=== PATIENT | female | born 1965 | race Caucasian/White ===

== ENCOUNTER 2023-09-06 06:58 | Outpatient (OUT) | payer BC, SELFPAY ==
[2023-09-06 07:30] LABS: Basophils Absolute Auto 0.1 10^3/uL (0.0-0.1); Basophils Percent Auto 1.3 % (0.2-2.0); Eosinophils Absolute Auto 0.2 10^3/uL (0.0-0.7); Eosinophils Percent Auto 2.8 % (0.9-7.0); Hematocrit 40.4 % (36.0-48.0); Hemoglobin 13.4 g/dL (12.0-16.0); Immature Granulocytes Abs Auto 0.01 10^3/uL (0.00-0.03); Immature Granulocytes Pct Auto 0.2 % (0.0-0.5); Lymphocytes Absolute Auto 2.3 10^3/uL (1.2-3.8); Lymphocytes Percent Auto 41.3 % (20.5-60.0); Mean Corpuscular HGB Conc 33.2 g/dL (29.9-35.2); Mean Corpuscular Hemoglobin 34.2 pg (26.7-34.0); Mean Corpuscular Volume 103.1 fL (81.0-99.0); Monocytes Absolute Auto 0.5 10^3/uL (0.3-0.8); Monocytes Percent Auto 9.4 % (1.7-12.0); Neutrophils Absolute Auto 2.5 10^3/uL (1.4-6.5); Platelet Count 239 10^3/uL (150-450); Red Blood Count 3.92 10^6/uL (4.20-5.40); Red Cell Distribution Width 11.8 % (11.0-15.0); White Blood Count 5.5 10^3/uL (4.0-11.0)
[2023-09-06 07:49] LABS: Estimated Average Glucose 97 mg/dL
[2023-09-06 08:02] LABS: Alanine Aminotransferase 19 U/L (14-59); Albumin Globulin Ratio 1.3; Albumin Level 3.9 g/dL (3.4-5.0); Alkaline Phosphatase 90 U/L (46-116); Anion Gap 12.1; Aspartate Amino Transferase 14 U/L (15-37); BUN Creatinine Ratio 33.3; Bilirubin Total 0.2 mg/dL (0.2-1.0); Calcium 8.5 mg/dL (8.5-10.1); Chloride 104 mmol/L (98-107); Chol HDL Ratio 3.4; Cholesterol 223 mg/dL (<=200); Estimated GFR (African America >60 (>=60); Estimated GFR (Non-African Ame >60 (>=60); Free T3 2.35 pg/mL (2.18-3.98); Globulin 3.1 g/dL; Glucose 89 mg/dL (74-106); HDL Cholesterol 65 mg/dL (40-60); Potassium 4.1 mmol/L (3.5-5.1); Sodium 138 mmol/L (136-145); Triglycerides 56 mg/dL (<=150); VLDL CHOLESTEROL 11.2 mg/dL
== END 2023-09-06 06:59 | disposition home or self-care (01) ==
LOC: LAB 07:01
PROVIDERS: PCP Family Medicine; Visit Provider Family Medicine
DX: Z00.00 Encounter for general adult medical examination without abnormal findings (principal); D75.89 Other specified diseases of blood and blood-forming organs
CPT/HCPCS: 36415; 80053; 80061; 82607; 83036; 84436; 84443; 84481; 85025

== ENCOUNTER 2023-11-05 13:30 | Outpatient (OUT) | payer BC, SELFPAY ==
--- NOTE | 2023-11-05 | MM_ITS ---
Patient Name: GIOVANNY HERNANDEZ MR#: [id number] : 1965 Exam Date: 11/05/2023 Ordering Doctor: DR Baldo Bravo . RADIOLOGY REPORT PROCEDURE: MM TOMOSYNTHESIS SCREENING BI COMPARISON: MG MAMM SCREEN 3D ALFA CAD, 11/04/2022. MG MAMM SCREEN 3D ALFA CAD, 10/29/2021. MG MAMM SCREEN ALFA W CAD, 10/25/2020. MG MAMM ALFA SCRN W CAD DIG, 10/05/2013. INDICATIONS: Alfa Screening Mammogram Calculator Name [facility] Breast Cancer Risk Assessment Tool 5 Year Breast Cancer Risk 1.40% Lifetime Breast Cancer Risk 7.20% Personal Breast Cancer No Personal Ovarian Cancer No Treatments None Family Cancers Grandfather-maternal with colon cancer at age ~70; Grandmother-paternal with breast cancer at age 74; Grandmother-maternal with lung cancer at age 74. LOCATION: [facility] BREAST COMPOSITION: Heterogeneously dense,which may obscure small masses. FINDINGS: DIAGNOSTIC CATEGORY 1--NEGATIVE. RIGHT BREAST: No significant suspicious finding. No significant change has occurred. LEFT BREAST: No significant suspicious finding. No significant change has occurred. RECOMMENDATIONS: ROUTINE MAMMOGRAM AND CLINICAL EVALUATION IN 12 MONTHS. PLEASE NOTE: A NORMAL MAMMOGRAM DOES NOT EXCLUDE THE POSSIBILITY OF BREAST CANCER. A CLINICALLY SUSPICIOUS PALPABLE LUMP SHOULD BE BIOPSIED. Dictated by: Pepe Sterling M.D. on 11/05/2023 at 14:30 Approved by: Pepe Sterling M.D. on 11/05/2023 at 14:34
--- OUTSIDE RECORDS SUMMARY | 2023-11-05 13:33 | XMS_ITS | CCD ---
Author Name Unknown Address [address] [place] [address] Organization [facility] Care Team Providers Care Take Out Waitress Name Role Phone HUSEYIN, DR CURIEL Admitting Unavailable HOY, DR CURIEL Attending Unavailable HOY, DR CURIEL Primary Care Unavailable HOY, DR CURIEL Consulting Unavailable KARASIK, DR DIEZ Admitting Unavailable KARASIK, DR DIEZ Attending Unavailable HOY, DR CURIEL Primary Care Unavailable KARASIK, DR DIEZ Consulting Unavailable ZIEBER, DR PEPE Cade Consulting Unavailable HOY, DR CURIEL Admitting Unavailable HOY, DR CURIEL Attending Unavailable HOY, DR CURIEL Primary Care Unavailable HOY, DR CURIEL Consulting Unavailable HOY, DR CURIEL Admitting Unavailable HOY, DR CURIEL Attending Unavailable HOY, DR CURIEL Primary Care Unavailable HOY, DR CURIEL Consulting Unavailable ZIEBER, DR PEPE Cade Consulting Unavailable KARASIK, DR DIEZ Admitting Unavailable KARASIK, DR DIEZ Attending Unavailable HOY, DR CURIEL Primary Care Unavailable KARASIK, DR DIEZ Consulting Unavailable Problems Active Problems Problem Classification Problem Date Documented Da te Episodic/Chronic Osteoporosis (1 source) Age-related osteoporosis without current pathological fracture; Translations: [AGE-REL OSTEOPOR W/O CURR PATH FX] Onset: 06-08-2022 Chronic Other screening for suspected conditions (not mental disorders or infectious disease) (8 sources) Encounter for screening mammogram for malignant neoplasm of breast; Translations: [Encounter for screening for malignant neoplasm of cervix] Onset: 01-15-2022 Episodic Residual codes; unclassified (1 source) Family history of malignant neoplasm of digestive organs; Translations: [FAM HX MALIG NEOPLASM DIGESTIV ORGN] Onset: 11-11-2022 Episodic Residual codes; unclassified (1 source) Family history of malignant neoplasm of breast; Translations: [FAMILY HX MALIG NEOPLASM OF BREAST] Onset: 11-11-2022 Episodic Residual codes; unclassified (1 source) Family history of malignant neoplasm of trachea, bronchus and lung; Translations: [FAM HX MALIG NEOPLSM TRACH BRON LNG] Onset: 11-11-2022 Episodic Past or Other Problems Problem Classification Problem Date Documented Date Episodic/Chronic Immunizations and screening for infectious disease (1 source) Encounter for screening for human papillomavirus (HPV); Translations: [ENC SCREENING HUMAN PAPILLOMAVIRUS] Onset: 01-16-2022 Episodic Residual codes; unclassified (4 sources) Asymptomatic menopausal state; Translations: [ASYMPTOMATIC MENOPAUSAL STATE] Onset: 06-03-2022 Episodic Results Test Name Value Interpretation Reference Range Facility MG MAMM SCREEN 3D ALFA CADon 11-04-2022 MG MAMM SCREEN 3D ALFA CAD Patient: GIOVANNY HERNANDEZ Exam Date: 11/04/2022 : 1965 Gender:F Ordering : DR MOISÉS FONTANEZ . Admission #: [id number] Family : Order #: [id number] CLICK HERE TO VIEW EXAM RADIOLOGY REPORT PROCEDURE: MAMMOGRAM SCREENING 3D BILATERAL CAD COMPARISON: MG MAMM SCREEN ALFA W CAD, 10/25/2020. MG MAMM SCREEN ALFA W CAD, 10/18/2019. DIGITIZED_MAMMO, 08/16/2009. MG MAMM SCREEN 3D ALFA CAD, 10/29/2021. INDICATIONS: Screening mammography Calculator Name NCI Breast Cancer Risk Assessment Tool 5 Year Breast Cancer Risk 1.40% Lifetime Breast Cancer Risk 7.40% Personal Breast Cancer No Personal Ovarian Cancer No Treatments None Family Cancers Grandfather-maternal with colon cancer at age 70; Grandmother-paternal with breast cancer at age 74; Grandmother-maternal with lung cancer at age 74. LOCATION: [facility] BREAST COMPOSITION: Heterogeneously dense,which may obscure small masses. FINDINGS: DIAGNOSTIC CATEGORY 1--NEGATIVE. RIGHT BREAST: No significant suspicious finding. No significant change has occurred. LEFT BREAST: No significant suspicious finding. No significant change has occurred. RECOMMENDATIONS: ROUTINE MAMMOGRAM AND CLINICAL EVALUATION IN 12 MONTHS. PLEASE NOTE: A NORMAL MAMMOGRAM DOES NOT EXCLUDE THE POSSIBILITY OF BREAST CANCER. A CLINICALLY SUSPICIOUS PALPABLE LUMP SHOULD BE BIOPSIED. Dictated by: Pepe Sterling M.D. on 11/04/2022 at 10:39 Approved by: Pepe Sterling M.D. on 11/04/2022 at 10:42 Normal [facility] CBC AUTO DIFFon 07-23-2022 BASO # 0.1 103/ul Normal 0.0-0.1 [facility] Comment on above: Performed By: #### C BC #### [facility] [address] [address] [address] Suzie Lundberg Basophils/100 WBC (Bld) 1.3 % Normal 0.2-2.0 [facility] Comment on above: Performed By: #### C BC #### [facility] [address] [address] [address] Suzie Lundberg EO # 0.2 103/ul Normal 0.0-0.7 [facility] Comment on above: Performed By: #### C BC #### [facility] [address] [address] [address] Suzie Lundberg Eosinophils/100 WBC (Bld) 3.1 % Normal 0.9-7.0 [facility] Comment on above: Performed By: #### C BC #### [facility] [address] [address] [address] Suzie Lundberg Erythrocyte distribution width (RBC) [Ratio] 12.1 % Normal 11.0-15.0 [facility] Comment on above: Performed By: #### C BC #### [facility] [address] [address] [address] Suzie Lundberg Hematocrit (Bld) [Volume fraction] 38.7 % Normal 36.0-48.0 [facility] Comment on above: Performed By: #### C BC #### [facility] [address] [address] [address] Suzie Lundberg Hemoglobin (Bld) [Mass/Vol] 12.9 g/dL Normal 12.0-16.0 [facility] Comment on above: Performed By: #### C BC #### [facility] [address] [address] [address] Suzie Lundberg IG # 0.01 10e3/ul Normal 0.00-0.03 [facility] Comment on above: Performed By: #### C BC #### [facility] [address] [place] [address] Dr. Suzie Lundberg IG % 0.2 % Normal 0.0-0.5 [facility] Comment on above: Performed By: #### C BC #### [facility] [address] [place] [address] Dr. Suzie Lundberg LYMPH # 1.8 103/ul Normal 1.2-3.8 [facility] Comment on above: Performed By: #### C BC #### [facility] [address] [place] [address] Dr. Suzie Lundberg Lymphocytes/100 WBC (Bld) 32.8 % Normal 20.5-60.0 [facility] Comment on above: Performed By: #### C BC #### [facility] [address] [place] [address] Dr. Suzie Lundberg MANUAL DIFF REQ NO Normal [facility] Comment on above: Performed By: #### C BC #### [facility] [address] [place] [address] Dr. Suzie Lundberg MCH (RBC) [Entitic mass] 33.8 pg Normal 26.7-34.0 [facility] Comment on above: Performed By: #### C BC #### [facility] [address] [place] [address] Dr. Suzie Lundberg MCHC (RBC) [Mass/Vol] 33.3 g/dL Normal 29.9-35.2 [facility] Comment on above: Performed By: #### C BC #### [facility] [address] [place] [address] Dr. Suzie Lundberg MCV (RBC) [Entitic vol] 101.3 fL Critically high 81.0-99.0 [facility] Comment on above: Performed By: #### C BC #### [facility] [address] [place] [address] Dr. Suzie Lundberg MONO # 0.5 103/ul Normal 0.3-0.8 [facility] Comment on above: Performed By: #### C BC #### [facility] [address] [place] [address] Dr. Suzie Lundberg Monocytes/100 WBC (Bld) 9.4 % Normal 1.7-12.0 [facility] Comment on above: Performed By: #### C BC #### [facility] [address] [place] [address] Dr. Suzie Lundberg NEUT # 2.9 103/ul Normal 1.4-6.5 [facility] Comment on above: Performed By: #### C BC #### [facility] [address] [place] [address] Dr. Suzie Lundberg Neutrophils/100 WBC (Bld) 53.2 % Normal 43.0-75.0 [facility] Comment on above: Performed By: #### C BC #### [facility] [address] [place] [address] Dr. Suzie Lundberg Platelet mean volume (Bld) [Entitic vol] 10.0 fL Normal 9.5-13.5 [facility] Comment on above: Performed By: #### C BC #### [facility] [address] [place] [address] Dr. Suzie Lundberg PLT 234 103/ul Normal 150-450 [facility] Comment on above: Performed By: #### C BC #### [facility] [address] [place] [address] Dr. Suzie Lundbreg RBC 3.82 106/ul Critically low 4.20-5.40 [facility] Comment on above: Performed By: #### C BC #### [facility] [address] [place] [address] Dr. Suzie Lundberg WBC 5.4 103/ul Normal 4.0-11.0 [facility] Comment on above: Performed By: #### C BC #### [facility] [address] [place] [address] Dr. Suzie Lundberg GLYCOHEMOGLOBIN A1Con 2021 ADA RECOMMENDATION SEE BELOW Normal [facility] Comment on above: Result Comment: ADA RECOMMENDED LIMIT 4.0 - 6.0 ADA THERAPEUTIC TARGET < 7.0 ACTION SUGGESTED > 7.0 Performed By: #### A 1C #### [facility] [address] [address] [address] Suzie Lundberg Glucose [Mass/Vol] 103 mg/dL Normal [facility] Comment on above: Performed By: #### A 1C #### [facility] [address] [address] [address] Suzie Lundberg HbA1c (Bld) [Mass fraction] 5.2 % Normal 4.5-6.2 [facility] Comment on above: Performed By: #### A 1C #### [facility] [address] [address] [address] Suzie Lundberg LIPID PROFILEon 07-23-2022 CHOL-HDL RATIO NORM SEE BELOW Normal [facility] Comment on above: Result Comment: 3.3 - 4.4 LOW RISK 4.4 - 7.1 AVERAGE RISK 7.1 - 11.0 MODERATE RISK >11.0 HIGH RISK Performed By: #### L IPID, CMP, TSH #### [facility] [address] [place] [address] Dr. Suzie Lundberg Cholesterol [Mass/Vol] 204 mg/dL Critically high <=200 [facility] Comment on above: Performed By: #### L IPID, CMP, TSH #### [facility] [address] [address] [address] Suzie Lundberg Cholesterol in HDL [Mass/Vol] 73 mg/dL Critically high 40-60 [facility] Comment on above: Performed By: #### L IPID, CMP, TSH #### [facility] [address] [address] [address] Suzie Lundberg Cholesterol in LDL [Mass/Vol] 124.6 mg/dL Normal [facility] Comment on above: Performed By: #### L IPID, CMP, TSH #### [facility] [address] [address] [address] Suzie Lundberg Cholesterol.total/Ch olesterol in HDL [Mass ratio] 2.8 {ratio} Normal [facility] Comment on above: Performed By: #### L IPID, CMP, TSH #### [facility] [address] [address] [address] Suzie Lundberg HDL NORMAL > or = 60 mg/dl - LO W CARDIOVASCULAR RISK <40 mg/dl - HIGH CARDIOVASCULAR RISK Normal [facility] Comment on above: Performed By: #### L IPID, CMP, TSH #### [facility] [address] [address] [address] Suzie Lundberg LDL CALC NORMAL SEE BELOW Normal [facility] Comment on above: Result Comment: <100 mg/dl OPTIMAL 100 - 129 mg/dl NEAR OR ABOVE OPTIMAL 130 - 159 mg/dl BORDERLINE HIGH 160 - 189 mg/dl HIGH >190 mg/dl VERY HIGH Performed By: #### L IPID, CMP, TSH #### [facility] [address] [address] [address] Suzie Lundberg Triglyceride [Mass/Vol] 32 mg/dL Normal <=150 [facility] Comment on above: Performed By: #### L IPID, CMP, TSH #### [facility] [address] [address] [address] Suzie Lundberg VLDL CALC 6.4 mg/dL Normal [facility] Comment on above: Performed By: #### L IPID, CMP, TSH #### [facility] [address] [address] [address] Suzie Lundberg PROF 14(COMP METB)on 022 Albumin [Mass/Vol] 3.9 g/dL Normal 3.4-5.0 [facility] Comment on above: Performed By: #### L IPID, CMP, TSH #### [facility] [address] [address] [address] Suzie Lundberg Albumin/Globulin [Mass ratio] 1.4 {ratio} Normal [facility] Comment on above: Performed By: #### L IPID, CMP, TSH #### [facility] [address] [address] [address] Suzie Lundberg ALP [Catalytic activity/Vol] 80 U/L Normal 46-116 [facility] Comment on above: Performed By: #### L IPID, CMP, TSH #### [facility] [address] [address] [address] Suzie Lundberg ALT [Catalytic activity/Vol] 20 U/L Normal 14-59 [facility] Comment on above: Performed By: #### L IPID, CMP, TSH #### [facility] [address] [address] [address] Suzie Lundberg Anion gap [Moles/Vol] 14.4 mmol/L Normal [facility] Comment on above: Performed By: #### L IPID, CMP, TSH #### [facility] [address] [address] [address] Suzie Lundberg AST [Catalytic activity/Vol] 14 U/L Critically low 15-37 [facility] Comment on above: Performed By: #### L IPID, CMP, TSH #### [facility] [address] [place] [address] Dr. Suzie Lundberg Bilirubin [Mass/Vol] 0.2 mg/dL Normal 0.2-1.0 [facility] Comment on above: Performed By: #### L IPID, CMP, TSH #### [facility] [address] [place] [address] Dr. Suzie Lundberg Calcium [Mass/Vol] 8.6 mg/dL Normal 8.5-10.1 [facility] Comment on above: Performed By: #### L IPID, CMP, TSH #### [facility] [address] [place] [address] Dr. Suzie Lundberg Chloride [Moles/Vol] 105 mmol/L Normal 98-107 [facility] Comment on above: Performed By: #### L IPID, CMP, TSH #### [facility] [address] [place] [address] Dr. Suzie Lundberg CO2 [Moles/Vol] 28.3 mmol/L Normal 21.0-32.0 [facility] Comment on above: Performed By: #### L IPID, CMP, TSH #### [facility] [address] [place] [address] Dr. Suzie Lundberg Creatinine [Mass/Vol] 0.70 mg/dL Normal 0.55-1.02 [facility] Comment on above: Performed By: #### L IPID, CMP, TSH #### [facility] [address] [address] [address] Suzie Lundberg EGFR-AF JAPANESE >60 Normal >=60 [facility] Comment on above: Performed By: #### L IPID, CMP, TSH #### [facility] [address] [address] [address] Suzie Lundberg EGFR-NON AF JAPANESE >60 Normal >=60 [facility] Comment on above: Performed By: #### L IPID, CMP, TSH #### [facility] [address] [address] [address] Suzie Lundberg Globulin (S) [Mass/Vol] 2.7 g/dL Normal [facility] Comment on above: Performed By: #### L IPID, CMP, TSH #### [facility] [address] [place] [address] Dr. Suzie Lundberg Glucose [Mass/Vol] 100 mg/dL Normal 74-106 [facility] Comment on above: Performed By: #### L IPID, CMP, TSH #### [facility] [address] [place] [address] Dr. Suzie Lundberg Potassium [Moles/Vol] 4.7 mmol/L Normal 3.5-5.1 [facility] Comment on above: Performed By: #### L IPID CMP, TSH #### [facility] [address] [address] [address] Suzie Lundberg Protein [Mass/Vol] 6.6 g/dL Normal 6.4-8.2 [facility] Comment on above: Performed By: #### L IPID, CMP, TSH #### [facility] [address] [address] [address] Suzie Lundberg Sodium [Moles/Vol] 143 mmol/L Normal 136-145 [facility] Comment on above: Performed By: #### L IPID, CMP, TSH #### [facility] [address] [address] [address] Suzie Lundberg Urea nitrogen [Mass/Vol] 11.0 mg/dL Normal 7.0-18.0 [facility] Comment on above: Performed By: #### L IPID CMP, TSH #### [facility] [address] [address] [address] Suzie Lundberg Urea nitrogen/Creatinine [Mass ratio] 15.7 mg/mg Normal [facility] Comment on above: Performed By: #### L IPID, CMP, TSH #### [facility] [address] [address] [address] Suzie Lundberg TSHon 07-23-2022 TSH 2.421 uIU/mL Normal 0.358-3.740 [facility] Comment on above: Performed By: #### L IPID, CMP, TSH #### [facility] [id number] Suzie Lundberg XR DEXA BONE DENSITYon 06-03 XR DEXA BONE DENSITY EXAMINATION: XR DEX A BONE DENSITY, 06/03/2022 7:54 AM EDT HISTORY: Menopause present COMPARISON: DEXA bone densitometry 12/02/2015 TECHNIQUE: Dual-energy X-ray absorptiometry (DEXA) bone density study performed for the axial skeleton. FINDINGS: SPINE ANALYSIS: Average bone mineral density is 0.937 g/cm2. T-score (standard deviation relative to young adult mean): -2.0 . -1.1% change since prior study. HIP ANALYSIS: Lowest bone mineral density is within the left femoral trochanter, 0.566 g/cm2. T-score (standard deviation relative to young adult mean): -2.5 . -4.3% change since prior study. IMPRESSION: World Stuart Organization Classification: Osteoporosis - High Fracture Risk Electronically authenticated by: PEPE STERLING Date: 2022-06-03 20:18 Normal [facility] PAP ACOG PANEL 2: 30 to 65on 01-21-2022 . . Normal [facility] Comment on above: Result Comment: Perf ormed at: WB Performed By: #### [id number] #### [facility] [address] [place] [address] Dr. Suzie Lundberg Age Gdln ACOG Testing 30-65 Normal [facility] Comment on above: Performed By: #### [id number] #### [facility] [address] [place] [address] Dr. Suzie Lundberg DIAGNOSIS: Comment Normal [facility] Comment on above: Result Comment: NEGA TIVE FOR INTRAEPITHELIAL LESION OR MALIGNANCY. FUNGAL ORGANISMS MORPHOLOGICALLY CONSISTENT WITH MARLENI SPECIES ARE PRESENT. CELLULAR CHANGES ASSOCIATED WITH INFLAMMATION ARE PRESENT. Performed at: WB Performed By: #### [id number] #### [facility] [address] [address] [address] Suzie Lundberg HPV Aptima Negative Normal Negative [facility] Comment on above: Result Comment: This nucleic acid amplification test detects fourteen high-risk HPV types (16,18,31,33,35,39,45,51,52,56,58,59,66,68) without differentiation. Performed at: =G Performed By: #### [id number] #### [facility] [address] [place] [address] Dr. Suzie Lundberg Methodology: Comment Normal [facility] Comment on above: Result Comment: This liquid based ThinPrep(R) pap test was screened with the use of an image guided system. Performed at: WB Performed By: #### [id number] #### [facility] [address] [place] [address] Dr. Suzie Lundberg Note: Comment Normal [facility] Comment on above: Result Comment: The Pap smear is a screening test designed to aid in the detection of premalignant and malignant conditions of the uterine cervix. It is not a diagnostic procedure and should not be used as the sole means of detecting cervical cancer. Both false-positive and false-negative reports do occur. . Performed at: WB Performed By: #### [id number] #### [facility] [address] [place] [address] Dr. Suzie Lundberg Performed by: Comment Normal [facility] Comment on above: Result Comment: Connor Hernandez, Thrasher Feeder (ASCP) Performed at: WB Performed By: #### [id number] #### [facility] [address] [place] [address] Dr. Suzie Lundberg Specimen adequacy: Comment Normal [facility] Comment on above: Result Comment: Sati sfactory for evaluation. No endocervical cells are present. This is consistent with a history of hysterectomy. Performed at: WB Performed By: #### [id number] #### [facility] [address] [place] [address] Dr. Suzie Lundberg COVID-19 Antigenon 1 COVID-19 Antigen Healthcare Worker?: N Andree Reference Andree Reference Negative SARS-CoV+SARS-CoV-2 (COVID-19) Ag [Presence] in Respiratory specimen by Rapid immunoassay Negative for SARS Antigen by EDIE COVID19 Blank Space Andree Disclaimer Negative results, from patients with symptom Andree Disclaimer onset beyond five days, should be treated as Andree Disclaimer presumptive and confirmation with a molecular Andree Disclaimer assay, if necessary, for patient management, Andree Disclaimer may be performed. Negative results do not rule Andree Disclaimer out COVID-19 and should not be used as the sole Andree Disclaimer basis for treatment or patient management Andree Disclaimer decisions, including infection control decisions. Andree Disclaimer Negative results should be considered in the Andree Disclaimer context of a patient's recent exposures, history Andree Disclaimer and the presence of clinical signs and symptoms Andree Disclaimer consistent with COVID-19. COVID19 Blank Space Andree Disclaimer The Andree SARS Antigen EDIE does not differentiate Andree Disclaimer between SARS-CoV and SARS-CoV-2. COVID19 Blank Space Andree Disclaimer This test was developed and its performance Andree Disclaimer characteristic determined by frents and Andree Disclaimer validated at [facility]. This Andree Disclaimer test has not been FDA cleared or approved. This Andree Disclaimer test has been authorized by FDA under an Emergency Use Andree Disclaimer Authorization (EUA). This test has been validated Andree Disclaimer in accordance with the FDA's Guidance Document (Policy Andree Disclaimer for Diagnostics Testing in Laboratories Certified to Andree Disclaimer Perform High Complexity Testing under CLIA prior to Andree Disclaimer Emergency Use Authorization for Coronavirus Andree Disclaimer iseas during the Public Health Emergency) Andree Disclaimer issued on February 15, 2020. This test is only authorized Andree Disclaimer for the duration of time the declaration that Andree Disclaimer circumstances exist justifying the authorization of Andree Disclaimer the emergency use of in vitro diagnostic tests for Andree Disclaimer detection of SARS-CoV-2 virus and/or diagnosis of Andree Disclaimer COVID-19 infection under section 564(b)(1) of the Andree Disclaimer Act, 21 U.S.C. 360bbb-3(b)(1), unless the Andree Disclaimer authorization is terminated or revoked sooner. PERFORMED BY: [place] [address] PATHOLOGIST WEIGHER BULKER GENNA CARRERA M.D. Normal [facility] Comment on above: Performed By: #### C OVID-19 ANDREE, SOFIANEG #### [place] [id number] [facility] Andree Ag Negativeon 10-22-20 21 Andree Ag Negative Negative Normal Negative [facility] Comment on above: Result Comment: This is a duplicate Andree SARS Antigen (EDIE) result to be used for statistical tracking purpose only. PERFORMED BY: [place] [id number] PATHOLOGIST WEIGHER BULKER GENNA CARRERA M.D. Performed By: #### C OVID-19 ANDREE, SOFIANEG #### [facility] [address] [place], [place] [id number] [facility] Encounters Encounter Date Encounter Type Care Provider Facility Start: 11-04-2022 End: 11-05-[address] MOISÉS FONTANEZ Facility:[facility] Start: 09-10-2022 End: 09-11-[address] MOISÉS FONTANEZ Facility:[facility] Start: 07-26-2022 Encounter for genera l adult medical examination without abnormal findings DR MOISÉS FONTANEZ [facility] Start: 07-23-2022 End: 07-24-[address] MOISÉS FONTANEZ Facility:[facility] Start: 07-23-2022 End: 07-24-2022 Encounter for general adult medical examination without abnormal findings DR MOISÉS FONTANEZ Facility:[facility]1 Start: 06-03-2022 End: 06-04-[address] RG WHITE Facility:[facility] Start: 01-15-2022 End: 01-15-[address] RG WHITE Facility:[facility]1 Payers Date Payer Category Payer Unknown [id number] 2.16.84 [id number] 1965 Unknown [id number] 2.16.84 [id number] 1965 Unknown [id number] 2.16.84 [id number] 1965 Unknown [id number] 2.16.84 [id number] 1961 Self-pay [id number] 1961 Unknown [id number] Unknown [id number] 2.16.84 [id number] Summary Purpose Family History No Family History Records FoundNo Family History Records Found Advance Directives No Advanced Directives Records FoundNo Advanced Directives Records Found Additional Source Comments INFORMATION SOURCE (unrecogn ized section and content) DATE CREATED AUTHOR 02/02/[address] [facility] DATE CREATED AUTHOR AUTHOR'S BEBETO ATION 11/11/2022 [facility] FOR RECORDS PERTAINING TO PATIENTS WHO ARE OR HAVE BEEN ENROLLED IN A CHEMICAL DEPENDENCY/SUBSTANCEABUSE PROGRAM, SOME INFORMATION MAY BE OMITTED. This clinical summary was aggregated from multiple sources. Caution should be exercised in using it in the provision of clinical care. This summary normalizes information from multiple sources, and as a consequence, information in this document may materially change the coding, format and clinical context of patient data. In addition, data may be omitted in some cases. CLINICAL DECISIONS SHOULD BE BASED ON THE PRIMARY CLINICAL RECORDS. [employer] [facility]. provides no warranty or guarantee of the accuracy or completeness of information in this document.
== END 2023-11-05 13:31 | disposition home or self-care (01) ==
LOC: MAMMO 13:30
PROVIDERS: PCP Family Medicine; Visit Provider Obstetrics & Gynecology
DX: Z12.31 Encounter for screening mammogram for malignant neoplasm of breast (principal); Z80.0 Family history of malignant neoplasm of digestive organs; Z80.3 Family history of malignant neoplasm of breast; Z80.1 Family history of malignant neoplasm of trachea, bronchus and lung
CPT/HCPCS: 77063; 77067

== ENCOUNTER 2024-10-06 06:49 | Outpatient (OUT) | payer BC, SELFPAY ==
--- OUTSIDE RECORDS SUMMARY | 2024-10-06 06:52 | XMS_ITS | CCD ---
Author Organization [facility] Care Team Providers Care [employer] Name Role Phone HUSEYIN, DR CURIEL Admitting [...] : DR MOISÉS FONTANEZ . Admission #: [id number] Family : Order #: [id number] CLICK HERE TO VIEW EXAM RADIOLOGY REPORT [...] lung cancer at age 72. LOCATION: [facility] BREAST COMPOSITION: Heterogeneously dense,which may obscure small [...] M.D. on 11/04/2022 at 10:42 Normal [facility] CBC AUTO DIFFon 07-23-2022 BASO # 0.1 103/ul Normal 0.0-0.1 [facility] Comment on above: Performed By: #### C BC #### [facility] [address] [place] [address] Dr. Suzie Lundberg Basophils/100 WBC (Bld) 1.3 % Normal 0.2-2.0 [facility] Comment on above: Performed By: #### C BC #### [facility] [address] [place] [address] Dr. Suzie Lundberg EO # 0.2 103/ul Normal 0.0-0.7 [facility] Comment on above: Performed By: #### C BC #### [facility] [address] [place] [address] Dr. Suzie Lundberg Eosinophils/100 WBC (Bld) 3.1 % Normal 0.9-7.0 [facility] Comment on above: Performed By: #### C BC #### [facility] [address] [place] [address] Dr. Suzie Lundberg Erythrocyte distribution width (RBC) [Ratio] 12.1 % Normal 11.0-15.0 [facility] Comment on above: Performed By: #### C BC #### [facility] [address] [place] [address] Dr. Suzie Lundberg Hematocrit (Bld) [Volume fraction] 38.7 % Normal 36.0-48.0 [facility] Comment on above: Performed By: #### C BC #### [facility] [address] [place] [address] Dr. Suzie Lundberg Hemoglobin (Bld) [Mass/Vol] 12.9 g/dL Normal 12.0-16.0 [facility] Comment on above: Performed By: #### C BC #### [facility] [address] [place] [address] Dr. Suzie Lundberg IG # 0.01 10e3/ul Normal 0.00-0.03 [facility] Comment on above: Performed By: #### C BC #### [facility] [address] [place] [address] Dr. Suzie Lundberg IG % 0.2 % Normal 0.0-0.5 [facility] Comment on above: Performed By: #### C BC #### [facility] [address] [place] [address] Dr. Suzie Lundberg LYMPH # 1.8 103/ul Normal 1.2-3.8 [facility] Comment on above: Performed By: #### C BC #### [facility] [address] [place] [address] Dr. Suzie Lundberg Lymphocytes/100 WBC (Bld) 32.8 % Normal 20.5-60.0 [facility] Comment on above: Performed By: #### C BC #### [facility] [address] [place] [address] Dr. Suzie Lundberg MANUAL DIFF REQ NO Normal [facility] Comment on above: Performed By: #### C BC #### [facility] [address] [place] [address] Dr. Suzie Lundberg MCH (RBC) [Entitic mass] 33.8 pg Normal 26.7-34.0 [facility] Comment on above: Performed By: #### C BC #### [facility] [address] [place] [address] Dr. Suzie Lundberg MCHC (RBC) [Mass/Vol] 33.3 g/dL Normal 29.9-35.2 [facility] Comment on above: Performed By: #### C BC #### [facility] [address] [place] [address] Dr. Suzie Lundberg MCV (RBC) [Entitic vol] 101.3 fL Critically high 81.0-99.0 [facility] Comment on above: Performed By: #### C BC #### [facility] [address] [place] [address] Dr. Suzie Lundberg MONO # 0.5 103/ul Normal 0.3-0.8 [facility] Comment on above: Performed By: #### C BC #### [facility] [address] [place] [address] Dr. Suzie Lundberg Monocytes/100 WBC (Bld) 9.4 % Normal 1.7-12.0 [facility] Comment on above: Performed By: #### C BC #### [facility] [address] [place] [address] Dr. Suzie Lundberg NEUT # 2.9 103/ul Normal 1.4-6.5 [facility] Comment on above: Performed By: #### C BC #### [facility] [address] [place] [address] Dr. Suzie Lundberg Neutrophils/100 WBC (Bld) 53.2 % Normal 43.0-75.0 [facility] Comment on above: Performed By: #### C BC #### [facility] [address] [place] [address] Dr. Suzie Lundberg Platelet mean volume (Bld) [Entitic vol] 10.0 fL Normal 9.5-13.5 [facility] Comment on above: Performed By: #### C BC #### [facility] [address] [place] [address] Dr. Suzie Lundberg PLT 234 103/ul Normal 150-450 [facility] Comment on above: Performed By: #### C BC #### [facility] [address] [place] [address] Dr. Suzie Lundberg RBC 3.82 106/ul Critically low 4.20-5.40 [facility] Comment on above: Performed By: #### C BC #### [facility] [address] [place] [address] Dr. Suzie Lundberg WBC 5.4 103/ul Normal 4.0-11.0 [facility] Comment on above: Performed By: #### C BC #### [facility] [address] [place] [address] Dr. Suzie Lundberg GLYCOHEMOGLOBIN A1Con 2021 ADA RECOMMENDATION SEE BELOW Normal [facility] Comment on above: Result Comment: ADA RECOMMENDED LIMIT 4.0 - 6.0 ADA THERAPEUTIC TARGET < 7.0 ACTION SUGGESTED > 7.0 Performed By: #### A 1C #### [facility] [address] [place] [address] Dr. Suzie Lundberg Glucose [Mass/Vol] 103 mg/dL Normal [facility] Comment on above: Performed By: #### A 1C #### [facility] [address] [address] [address] Suzie Lundberg HbA1c (Bld) [Mass fraction] 5.2 % Normal 4.5-6.2 [facility] Comment on above: Performed By: #### A 1C #### [facility] [address] [address] [address] Suzie Lundberg LIPID PROFILEon 07-23-2022 CHOL-HDL RATIO NORM SEE BELOW Normal [facility] [place] Comment on above: Result Comment: 3.3 - 4.4 LOW RISK 4.4 - 7.1 AVERAGE RISK 7.1 - 11.0 MODERATE RISK >11.0 HIGH RISK Performed By: #### L IPID, CMP, TSH #### [facility] [address] [address] [address] Suzie Lundberg Cholesterol [Mass/Vol] 204 mg/dL Critically high <=200 [facility] Comment on above: Performed By: #### L IPID, CMP, TSH #### [facility] [address] [address] [address] Suzie Lundberg Cholesterol in HDL [Mass/Vol] 73 mg/dL Critically high 40-60 [facility] Comment on above: Performed By: #### L IPID, CMP, TSH #### [facility] [address] [address] [address] Suzie Lundberg Cholesterol in LDL [Mass/Vol] 124.6 mg/dL Normal [facility] Comment on above: Performed By: #### L IPID, CMP, TSH #### [facility] [address] [address] [address] Suzie Lundberg Cholesterol.total/Ch olesterol in HDL [Mass ratio] 2.8 {ratio} Normal [facility] Comment on above: Performed By: #### L IPID, CMP, TSH #### [facility] [address] [address] [address] Suzie Lundberg HDL NORMAL > or = 60 mg/dl - LO W CARDIOVASCULAR RISK <40 mg/dl - HIGH CARDIOVASCULAR RISK Normal [facility] Comment on above: Performed By: #### L IPID, CMP, TSH #### [facility] [address] [address] [address] Suzie Lundberg LDL CALC NORMAL SEE BELOW Normal [facility] Comment on above: Result Comment: <100 mg/dl OPTIMAL 100 - 129 mg/dl NEAR OR ABOVE OPTIMAL 130 - 159 mg/dl BORDERLINE HIGH 160 - 189 mg/dl HIGH >190 mg/dl VERY HIGH Performed By: #### L IPID, CMP, TSH #### [facility] [address] [address] [address] Suzie Lundberg Triglyceride [Mass/Vol] 32 mg/dL Normal <=150 [facility] Comment on above: Performed By: #### L IPID, CMP, TSH #### [facility] [address] [address] [address] Suzie Lundberg VLDL CALC 6.4 mg/dL Normal [facility] Comment on above: Performed By: #### L IPID, CMP, TSH #### [facility] [address] [address] [address] Suzie Lundberg PROF 14(COMP METB)on 022 Albumin [Mass/Vol] 3.9 g/dL Normal 3.4-5.0 [facility] Comment on above: Performed By: #### L IPID, CMP, TSH #### [facility] [address] [address] [address] Suzie Lundberg Albumin/Globulin [Mass ratio] 1.4 {ratio} Normal [facility] Comment on above: Performed By: #### L IPID, CMP, TSH #### [facility] [address] [address] [address] Suzie Lundberg ALP [Catalytic activity/Vol] 80 U/L Normal 46-116 [facility] Comment on above: Performed By: #### L IPID, CMP, TSH #### [facility] [address] [address] [address] Suzie Lundberg ALT [Catalytic activity/Vol] 20 U/L Normal 14-59 [facility] Comment on above: Performed By: #### L IPID, CMP, TSH #### [facility] [address] [address] [address] Suzie Lundberg Anion gap [Moles/Vol] 14.4 mmol/L Normal [facility] Comment on above: Performed By: #### L IPID, CMP, TSH #### [facility] [address] [address] [address] Suzie Lundberg AST [Catalytic activity/Vol] 14 U/L Critically low 15-37 [facility] Comment on above: Performed By: #### L IPID, CMP, TSH #### [facility] [address] [address] [address] Suzie Lundberg Bilirubin [Mass/Vol] 0.2 mg/dL Normal 0.2-1.0 [facility] Comment on above: Performed By: #### L IPID, CMP, TSH #### [facility] [address] [place] [address] Dr. Suzie Lundberg Calcium [Mass/Vol] 8.6 mg/dL Normal 8.5-10.1 [facility] Comment on above: Performed By: #### L IPID, CMP, TSH #### [facility] [address] [place] [address] Dr. Suzie Lundberg Chloride [Moles/Vol] 105 mmol/L Normal 98-107 [facility] Comment on above: Performed By: #### L IPID, CMP, TSH #### [facility] [address] [address] [address] Suzie Lundberg CO2 [Moles/Vol] 28.3 mmol/L Normal 21.0-32.0 [facility] Comment on above: Performed By: #### L IPID, CMP, TSH #### [facility] [address] [place] [address] Dr. Suzie Lundberg Creatinine [Mass/Vol] 0.70 mg/dL Normal 0.55-1.02 [facility] Comment on above: Performed By: #### L IPID, CMP, TSH #### [facility] [address] [place] [address] Dr. Suzie Lundberg EGFR-AF TURKS AND CAICOS ISLANDER >60 Normal >=60 [facility] Comment on above: Performed By: #### L IPID, CMP, TSH #### [facility] [address] [place] [address] Dr. Suzie Lundberg EGFR-NON AF TURKS AND CAICOS ISLANDER >60 Normal >=60 [facility] Comment on above: Performed By: #### L IPID, CMP, TSH #### [facility] [address] [place] [address] Dr. Suzie Lundberg Globulin (S) [Mass/Vol] 2.7 g/dL Normal [facility] Comment on above: Performed By: #### L IPID, CMP, TSH #### [facility] [address] [place] [address] Dr. Suzie Lundberg Glucose [Mass/Vol] 100 mg/dL Normal 74-106 [facility] Comment on above: Performed By: #### L IPID, CMP, TSH #### [facility] [address] [place] [address] Dr. Suzie Lundberg Potassium [Moles/Vol] 4.7 mmol/L Normal 3.5-5.1 [facility] Comment on above: Performed By: #### L IPID, CMP, TSH #### [facility] [address] [place] [address] Dr. Suzie Lundberg Protein [Mass/Vol] 6.6 g/dL Normal 6.4-8.2 [facility] Comment on above: Performed By: #### L IPID, CMP, TSH #### [facility] [address] [place] [address] Dr. Suzie Lnudberg Sodium [Moles/Vol] 143 mmol/L Normal 136-145 [facility] Comment on above: Performed By: #### L IPID, CMP, TSH #### [facility] [address] [place] [address] Dr. Suzie Lundberg Urea nitrogen [Mass/Vol] 11.0 mg/dL Normal 7.0-18.0 [facility] Comment on above: Performed By: #### L IPID, CMP, TSH #### [facility] [address] [address] [address] Suzie Lundberg Urea nitrogen/Creatinine [Mass ratio] 15.7 mg/mg Normal [facility] Comment on above: Performed By: #### L ANTONINA PATHAK, TSH #### [facility] [address] [address] [address] Suzie Lundberg TSHon 07-23-2022 TSH 2.421 uIU/mL Normal 0.358-3.740 [facility] Comment on above: Performed By: #### L ANTONINA PATHAK, TSH #### [facility] [address] [place], [place] [address] Dr. Suzie Lundberg XR DEXA BONE DENSITYon [...] by: PEPE STERLING Date: 2022-06-03 20:18 Normal [facility] PAP ACOG PANEL 2: 30 to 65on 01-21-2022 . . Normal [facility] Comment on above: Result Comment: Perf ormed at: WB Performed By: #### [id number] #### [facility] [address] [place] [address] Dr. Suzie Lundberg Age Gdln ACOG Testing 30-65 [facility] Comment on above: Performed By: #### [id number] #### [facility] [address] [address] [address] Suzie Lundberg DIAGNOSIS: Comment [facility] Comment on above: Result Comment: NEGA TIVE FOR INTRAEPITHELIAL LESION OR MALIGNANCY. FUNGAL ORGANISMS MORPHOLOGICALLY CONSISTENT WITH MARLENI SPECIES ARE PRESENT. CELLULAR CHANGES ASSOCIATED WITH INFLAMMATION ARE PRESENT. Performed at: WB Performed By: #### [id number] #### [facility] [address] [place] [address] Dr. Suzie Lundberg HPV Aptima Negative Normal Negative [facility] Comment on above: Result Comment: This nucleic acid amplification test detects fourteen high-risk HPV types (16,18,31,33,35,39,45,51,52,56,58,59,66,68) without differentiation. Performed at: =G Performed By: #### [id number] #### [facility] [address] [place] [address] Dr. Suzie Lundberg Methodology: Comment Normal [facility] Comment on above: Result Comment: This liquid based ThinPrep(R) pap test was screened with the use of an image guided system. Performed at: WB Performed By: #### [id number] #### [facility] [address] [place] [address] Dr. Suzie Lundberg Note: Comment Normal [facility] Comment on above: Result Comment: The Pap smear is a screening test designed to aid in the detection of premalignant and malignant conditions of the uterine cervix. It is not a diagnostic procedure and should not be used as the sole means of detecting cervical cancer. Both false-positive and false-negative reports do occur. . Performed at: WB Performed By: #### [id number] #### [facility] [address] [place] [address] Dr. Suzie Lundberg Performed by: Comment Normal [facility] Comment on above: Result Comment: Connor Hernandez, Tourist Escort (ASCP) Performed at: WB Performed By: #### [id number] #### [facility] [address] [place] [address] Dr. Suzie Lundberg Specimen adequacy: Comment Normal [facility] Comment on above: Result Comment: Sati sfactory for evaluation. No endocervical cells are present. This is consistent with a history of hysterectomy. Performed at: WB Performed By: #### [id number] #### [facility] [address] [place] [address] Dr. Suzie Lundberg COVID-19 Antigenon 1 COVID-19 [...] its performance Andree Disclaimer characteristic determined by [employer] and Andree Disclaimer validated at [facility]. This Andree Disclaimer test has not been FDA cleared or approved. This Adnree Disclaimer test has been authorized by FDA [...] is terminated or revoked sooner. PERFORMED BY: [place] [id number] PATHOLOGIST RISK CONSULTING TREASURY DIRECTOR GENNA CARRERA M.D. Normal [facility] Comment on above: Performed By: #### C OVID-19 ANDREE, SOFIANEG #### [place] [id number] [facility] Andree Ag Negativeon 10-22-20 21 Andree Ag Negative Negative Normal Negative [facility] Comment on above: Result Comment: This is a duplicate Andree SARS Antigen (EDIE) result to be used for statistical tracking purpose only. PERFORMED BY: [place] [id number] PATHOLOGIST RISK CONSULTING TREASURY DIRECTOR GENNA CARRERA M.D. Performed By: #### C OVID-19 ANDREE, SOFIANEG #### [facility] [address] [place], [place] [id number] [facility] Encounters Encounter Date Encounter Type Care Provider Facility Start: 11-04-2022 End: 11-05-[address] MOISÉS FONTANEZ Facility:[facility] Start: 09-10-2022 End: 09-11-[address] MOISÉS FONTANEZ Facility:[facility] Start: 07-26-2022 Encounter for genera l adult medical examination without abnormal findings DR MOISÉS FONTANEZ [facility] Start: 07-23-2022 End: 07-24-[address] MOISÉS FONTANEZ Facility:[facility] Start: 07-23-2022 End: 07-24-2022 Encounter for general adult medical examination without abnormal findings DR MOISÉS FONTANEZ Facility:[facility] Start: 06-03-2022 End: 06-04-[address] RG WHITE Facility:[facility] Start: 01-15-2022 End: 01-15-[address] RG WHITE Facility:[facility]1 Payers Date Payer Category Payer Unknown [id number] 2.16.84 [id number] 1965 Unknown [id number] 2.16.84 [id number] 1965 Unknown [id number] 2.16.84 [id number] 1965 Unknown [id number] 2.16.84 [id number] 1961 Self-pay [id number] 1961 Unknown [id number] Unknown [id number] 2.16.84 [id number] Summary Purpose Family History No Family History Records FoundNo Family History Records Found Advance Directives No Advanced Directives Records FoundNo Advanced Directives Records Found Additional Source Comments INFORMATION SOURCE (unrecogn ized section and content) DATE CREATED AUTHOR 02/02/2022 [facility] DATE CREATED AUTHOR AUTHOR'S ELVISIZ ATION 11/11/2022 [facility] FOR RECORDS PERTAINING TO PATIENTS WHO ARE [...] BE BASED ON THE PRIMARY CLINICAL RECORDS. [employer] [facility]. provides no warranty or guarantee of the accuracy or completeness of information in this document.
[2024-10-06 07:14] LABS: Basophils Absolute Auto 0.1 10^3/uL (0.0-0.1); Basophils Percent Auto 1.6 % (0.2-2.0); Eosinophils Absolute Auto 0.2 10^3/uL (0.0-0.7); Hematocrit 42.1 % (36.0-48.0); Hemoglobin 14.2 g/dL (12.0-16.0); Immature Granulocytes Abs Auto 0.01 10^3/uL (0.00-0.03); Immature Granulocytes Pct Auto 0.2 % (0.0-0.5); Lymphocytes Percent Auto 39.5 % (20.5-60.0); Mean Corpuscular HGB Conc 33.7 g/dL (29.9-35.2); Mean Corpuscular Hemoglobin 34.4 pg (26.7-34.0); Mean Corpuscular Volume 101.9 fL (81.0-99.0); Mean Platelet Volume 10.2 fL (9.5-13.5); Monocytes Absolute Auto 0.5 10^3/uL (0.3-0.8); Monocytes Percent Auto 9.3 % (1.7-12.0); Neutrophils Absolute Auto 2.4 10^3/uL (1.4-6.5); Neutrophils Percent Auto 46.4 % (43.0-75.0); Platelet Count 270 10^3/uL (150-450); Red Blood Count 4.13 10^6/uL (4.20-5.40); Red Cell Distribution Width 11.5 % (11.0-15.0); White Blood Count 5.1 10^3/uL (4.0-11.0)
[2024-10-06 07:41] LABS: Alanine Aminotransferase 21 U/L (14-59); Albumin Globulin Ratio 1.3; Albumin Level 3.9 g/dL (3.4-5.0); Alkaline Phosphatase 91 U/L (46-116); Anion Gap 12.3; Aspartate Amino Transferase 15 U/L (15-37); BUN Creatinine Ratio 14.6; Bilirubin Total 0.4 mg/dL (0.2-1.0); Carbon Dioxide 29.6 mmol/L (21.0-32.0); Chloride 103 mmol/L (98-107); Cholesterol 210 mg/dL (<=200); Estimated GFR (African America >60 (>=60 mL/min/1.73m^2); Estimated GFR (Non-African Ame >60 (>=60 mL/min/1.73m^2); Free T3 2.74 pg/mL (2.18-3.98); Globulin 2.9 g/dL; Glucose 90 mg/dL (74-106); HDL Cholesterol 69 mg/dL (40-60); Potassium 4.9 mmol/L (3.5-5.1); Sodium 140 mmol/L (136-145); Thyroid Stimulating Hormone 2.315 uIU/mL (0.358-3.740); Total Protein 6.8 g/dL (6.4-8.2); Triglycerides 58 mg/dL (<=150); VLDL CHOLESTEROL 11.6 mg/dL
[2024-10-06 08:45] LABS: Estimated Average Glucose 103 mg/dL; Glycohemoglobin A1C 5.2 % (4.5-6.2)
== END 2024-10-06 06:50 | disposition home or self-care (01) ==
LOC: LAB 06:50
PROVIDERS: PCP Family Medicine; Visit Provider Family Medicine
DX: Z00.00 Encounter for general adult medical examination without abnormal findings (principal)
CPT/HCPCS: 36415; 80053; 80061; 83036; 84436; 84443; 84481; 85025

== ENCOUNTER 2024-11-06 07:18 | Outpatient (OUT) | payer BC, SELFPAY ==
--- NOTE | 2024-11-06 07:20 | MM_ITS ---
Patient Name: GIOVANNY HERNANDEZ MR#: [id number] : 1965 Exam Date: 11/06/2024 Ordering Doctor: DR Jaziel Bynum . RADIOLOGY REPORT PROCEDURE: MM TOMOSYNTHESIS SCREENING BI COMPARISON: MM TOMOSYNTHESIS SCREENING BI, 11/05/2023. INDICATIONS: screening for malignant neoplasm of brest Calculator Name NCI Breast Cancer Risk Assessment Tool 5 Year Breast Cancer Risk 1.50% Lifetime Breast Cancer Risk 7.00% Personal Breast Cancer No Personal Ovarian Cancer No Treatments None Family Cancers Grandfather-maternal with colon cancer at age ~70; Grandmother-paternal with breast cancer at age 74; Grandmother-maternal with lung cancer at age 74. LOCATION: [facility] BREAST COMPOSITION: The breasts are heterogeneously dense,which may obscure small masses. FINDINGS: DIAGNOSTIC CATEGORY 1--NEGATIVE. NO CHANGE FROM COMPARISON ASSESSMENT. Scattered benign-appearing calcifications are present. RIGHT BREAST: No significant suspicious finding. LEFT BREAST: No significant suspicious finding. RECOMMENDATIONS: ROUTINE MAMMOGRAM AND CLINICAL EVALUATION IN 12 MONTHS. PLEASE NOTE: A NORMAL MAMMOGRAM DOES NOT EXCLUDE THE POSSIBILITY OF BREAST CANCER. A CLINICALLY SUSPICIOUS PALPABLE LUMP SHOULD BE BIOPSIED. Dictated by: Herb Velasquez MD on 11/06/2024 at 08:55 Approved by: Herb Velasquez MD on 11/06/2024 at 09:03
--- OUTSIDE RECORDS SUMMARY | 2024-11-06 07:20 | XMS_ITS | CCD ---
Author Organization [facility] Care Team Providers Care Adobe Block Maker Name Role Phone HUSEYIN, DR CURIEL Admitting [...] : DR MOISÉS FONTANEZ . Admission #: [id number] Family : Order #: [id number] CLICK HERE TO VIEW EXAM RADIOLOGY REPORT [...] lung cancer at age 72. LOCATION: [facility] BREAST COMPOSITION: Heterogeneously dense,which may obscure small [...] M.D. on 11/04/2022 at 10:42 Normal [facility] CBC AUTO DIFFon 07-23-2022 BASO # 0.1 103/ul Normal 0.0-0.1 [facility] Comment on above: Performed By: #### C BC #### [facility] [address] [place] [address] Dr. Suzie Lundberg Basophils/100 WBC (Bld) 1.3 % Normal 0.2-2.0 [facility] Comment on above: Performed By: #### C BC #### [facility] [address] [place] [address] Dr. Suzie Lundberg EO # 0.2 103/ul Normal 0.0-0.7 [facility] Comment on above: Performed By: #### C BC #### [facility] [address] [place] [address] Dr. Suzie Lundberg Eosinophils/100 WBC (Bld) 3.1 % Normal 0.9-7.0 [facility] Comment on above: Performed By: #### C BC #### [facility] [address] [place] [address] Dr. Suzie Lundberg Erythrocyte distribution width (RBC) [Ratio] 12.1 % Normal 11.0-15.0 [facility] Comment on above: Performed By: #### C BC #### [facility] [address] [place] [address] Dr. Suzie Lundberg Hematocrit (Bld) [Volume fraction] 38.7 % Normal 36.0-48.0 [facility] Comment on above: Performed By: #### C BC #### [facility] [address] [place] [address] Dr. Suzie Lundberg Hemoglobin (Bld) [Mass/Vol] 12.9 g/dL Normal 12.0-16.0 [facility] Comment on above: Performed By: #### C BC #### [facility] [address] [place] [address] Dr. Suzie Lundberg IG # 0.01 10e3/ul Normal 0.00-0.03 [facility] Comment on above: Performed By: #### C BC #### [facility] [address] [place] [address] Dr. Suzie Lundberg IG % 0.2 % Normal 0.0-0.5 [facility] Comment on above: Performed By: #### C BC #### [facility] [address] [place] [address] Dr. Suzie Lundberg LYMPH # 1.8 103/ul Normal 1.2-3.8 [facility] Comment on above: Performed By: #### C BC #### [facility] [address] [place] [address] Dr. Suzie Lundberg Lymphocytes/100 WBC (Bld) 32.8 % Normal 20.5-60.0 [facility] Comment on above: Performed By: #### C BC #### [facility] [address] [place] [address] Dr. Suzie Lundberg MANUAL DIFF REQ NO Normal [facility] Comment on above: Performed By: #### C BC #### [facility] [address] [place] [address] Dr. Suzie Lundberg MCH (RBC) [Entitic mass] 33.8 pg Normal 26.7-34.0 [facility] Comment on above: Performed By: #### C BC #### [facility] [address] [place] [address] Dr. Suzie Lundberg MCHC (RBC) [Mass/Vol] 33.3 g/dL Normal 29.9-35.2 [facility] Comment on above: Performed By: #### C BC #### [facility] [address] [place] [address] Dr. Suzie Lundberg MCV (RBC) [Entitic vol] 101.3 fL Critically high 81.0-99.0 [facility] Comment on above: Performed By: #### C BC #### [facility] [address] [place] [address] Dr. Suzie Lundberg MONO # 0.5 103/ul Normal 0.3-0.8 [facility] Comment on above: Performed By: #### C BC #### [facility] [address] [place] [address] Dr. uSzie Lundberg Monocytes/100 WBC (Bld) 9.4 % Normal 1.7-12.0 [facility] Comment on above: Performed By: #### C BC #### [facility] [address] [place] [address] Dr. Suzie Lundberg NEUT # 2.9 103/ul Normal 1.4-6.5 [facility] Comment on above: Performed By: #### C BC #### [facility] [address] [place] [address] Dr. Suzie Lundberg Neutrophils/100 WBC (Bld) 53.2 % Normal 43.0-75.0 [facility] Comment on above: Performed By: #### C BC #### [facility] [address] [place] [address] Dr. Suzie Lundberg Platelet mean volume (Bld) [Entitic vol] 10.0 fL Normal 9.5-13.5 [facility] Comment on above: Performed By: #### C BC #### [facility] [address] [place] [address] Dr. Suzie Lundberg PLT 234 103/ul Normal 150-450 [facility] Comment on above: Performed By: #### C BC #### [facility] [address] [place] [address] Dr. Suzie Lundberg RBC 3.82 106/ul Critically low 4.20-5.40 [facility] Comment on above: Performed By: #### C BC #### [facility] [address] [place] [address] Dr. Suzie Lundberg WBC 5.4 103/ul Normal 4.0-11.0 [facility] Comment on above: Performed By: #### C BC #### [facility] [address] [place] [address] Dr. Suzie Lundberg GLYCOHEMOGLOBIN A1Con 2021 ADA RECOMMENDATION SEE BELOW Normal [facility] Comment on above: Result Comment: ADA RECOMMENDED LIMIT 4.0 - 6.0 ADA THERAPEUTIC TARGET < 7.0 ACTION SUGGESTED > 7.0 Performed By: #### A 1C #### [facility] [address] [place] [address] Dr. Suzie Lundberg Glucose [Mass/Vol] 103 mg/dL Normal [facility] Comment on above: Performed By: #### A 1C #### [facility] [address] [address] [address] Suzie Lundberg HbA1c (Bld) [Mass fraction] 5.2 % Normal 4.5-6.2 [facility] Comment on above: Performed By: #### A 1C #### [facility] [address] [address] [address] Suzie Lundberg LIPID PROFILEon 07-23-2022 CHOL-HDL RATIO NORM SEE BELOW Normal [facility] Comment on above: Result Comment: 3.3 - 4.4 LOW RISK 4.4 - 7.1 AVERAGE RISK 7.1 - 11.0 MODERATE RISK >11.0 HIGH RISK Performed By: #### L IPID, CMP, TSH #### [facility] [address] [address] [address] Suzie Lundberg Cholesterol [Mass/Vol] 204 mg/dL Critically high <=200 [facility] Comment on above: Performed By: #### L IPID, CMP, TSH #### [facility] [address] [address] [address] Suzie Lundberg Cholesterol in HDL [Mass/Vol] 73 mg/dL Critically high 40-60 [facility] Comment on above: Performed By: #### L IPID, CMP, TSH #### [facility] [address] [address] [address] Suzie Lundberg Cholesterol in LDL [Mass/Vol] 124.6 mg/dL Normal [facility] Comment on above: Performed By: #### L IPID, CMP, TSH #### [facility] [address] [address] [address] Suzie Lundberg Cholesterol.total/Ch olesterol in HDL [Mass ratio] 2.8 {ratio} Normal [facility] Comment on above: Performed By: #### L IPID, CMP, TSH #### [facility] [address] [address] [address] Suzie Lundberg HDL NORMAL > or = 60 mg/dl - LO W CARDIOVASCULAR RISK <40 mg/dl - HIGH CARDIOVASCULAR RISK Normal [facility] Comment on above: Performed By: #### L IPID, CMP, TSH #### [facility] [address] [address] [address] Suzie Lundberg LDL CALC NORMAL SEE BELOW Normal [facility] Comment on above: Result Comment: <100 mg/dl OPTIMAL 100 - 129 mg/dl NEAR OR ABOVE OPTIMAL 130 - 159 mg/dl BORDERLINE HIGH 160 - 189 mg/dl HIGH >190 mg/dl VERY HIGH Performed By: #### L IPID, CMP, TSH #### [facility] [address] [address] [address] Suzie Lundberg Triglyceride [Mass/Vol] 32 mg/dL Normal <=150 [facility] Comment on above: Performed By: #### L IPID, CMP, TSH #### [facility] [address] [address] [address] Suzie Lundberg VLDL CALC 6.4 mg/dL Normal [facility] Comment on above: Performed By: #### L IPID, CMP, TSH #### [facility] [address] [address] [address] Suzie Lundberg PROF 14(COMP METB)on 022 Albumin [Mass/Vol] 3.9 g/dL Normal 3.4-5.0 [facility] Comment on above: Performed By: #### L IPID, CMP, TSH #### [facility] [address] [address] [address] Suzie Lundberg Albumin/Globulin [Mass ratio] 1.4 {ratio} Normal [facility] Comment on above: Performed By: #### L IPID, CMP, TSH #### [facility] [address] [address] [address] Suzie Lundberg ALP [Catalytic activity/Vol] 80 U/L Normal 46-116 [facility] Comment on above: Performed By: #### L IPID, CMP, TSH #### [facility] [address] [address] [address] Suzie Lundberg ALT [Catalytic activity/Vol] 20 U/L Normal 14-59 [facility] Comment on above: Performed By: #### L IPID, CMP, TSH #### [facility] [address] [address] [address] Suzie Lundberg Anion gap [Moles/Vol] 14.4 mmol/L Normal [facility] Comment on above: Performed By: #### L IPID, CMP, TSH #### [facility] [address] [address] [address] Suzie Lundberg AST [Catalytic activity/Vol] 14 U/L Critically low 15-37 [facility] Comment on above: Performed By: #### L IPID, CMP, TSH #### [facility] [address] [address] [address] Suzie Lundberg Bilirubin [Mass/Vol] 0.2 mg/dL Normal 0.2-1.0 [facility] Comment on above: Performed By: #### L IPID, CMP, TSH #### [facility] [address] [place] [address] Dr. Suzie Lundberg Calcium [Mass/Vol] 8.6 mg/dL Normal 8.5-10.1 [facility] Comment on above: Performed By: #### L IPID, CMP, TSH #### [facility] [address] [place] [address] Dr. Suzie Lundberg Chloride [Moles/Vol] 105 mmol/L Normal 98-107 [facility] Comment on above: Performed By: #### L IPID, CMP, TSH #### [facility] [address] [address] [address] Suzie Lundberg CO2 [Moles/Vol] 28.3 mmol/L Normal 21.0-32.0 [facility] Comment on above: Performed By: #### L IPID, CMP, TSH #### [facility] [address] [place] [address] Dr. Suzie Lundberg Creatinine [Mass/Vol] 0.70 mg/dL Normal 0.55-1.02 [facility] Comment on above: Performed By: #### L IPID, CMP, TSH #### [facility] [address] [place] [address] Dr. Suzie Lundberg EGFR-AF GREENLANDIC >60 Normal >=[address] [facility] Comment on above: Performed By: #### L IPID, CMP, TSH #### [facility] [address] [place] [address] Dr. Suzie Lundberg EGFR-NON AF GREENLANDIC >60 Normal >=60 [facility] Comment on above: Performed By: #### L IPID, CMP, TSH #### [facility] [address] [place] [address] Dr. Suzie Lundberg Globulin (S) [Mass/Vol] 2.7 g/dL Normal [facility] Comment on above: Performed By: #### L IPID, CMP, TSH #### [facility] [address] [place] [address] Dr. Suzie Lundberg Glucose [Mass/Vol] 100 mg/dL Normal 74-106 [facility] Comment on above: Performed By: #### L IPID, CMP, TSH #### [facility] [address] [place] [address] Dr. Suzie Lundberg Potassium [Moles/Vol] 4.7 mmol/L Normal 3.5-5.1 [facility] Comment on above: Performed By: #### L IPID, CMP, TSH #### [facility] [address] [place] [address] Dr. Suzie Lundberg Protein [Mass/Vol] 6.6 g/dL Normal 6.4-8.2 [facility] Comment on above: Performed By: #### L IPID, CMP, TSH #### [facility] [address] [place] [address] Dr. Suzie Lundberg Sodium [Moles/Vol] 143 mmol/L Normal 136-145 [facility] Comment on above: Performed By: #### L IPID, CMP, TSH #### [facility] [address] [place] [address] Dr. Suzie Lundberg Urea nitrogen [Mass/Vol] 11.0 mg/dL Normal 7.0-18.0 [facility] Comment on above: Performed By: #### L IPID, CMP, TSH #### [facility] [address] [address] [address] Suzie Lundberg Urea nitrogen/Creatinine [Mass ratio] 15.7 mg/mg Normal [facility] Comment on above: Performed By: #### L ANTONINA PATHAK, TSH #### [facility] [address] [address] [address] Suzie Lundberg TSHon 07-23-2022 TSH 2.421 uIU/mL Normal 0.358-3.740 [facility] Comment on above: Performed By: #### L ANTONINA PATHAK, TSH #### [facility] [address] [place], [place] [address] Dr. Suzie Lundberg XR DEXA BONE DENSITYon [...] by: PEPE STERLING Date: 2022-06-03 20:18 Normal [facility] PAP ACOG PANEL 2: 30 to 65on 01-21-2022 . . Normal [facility] Comment on above: Result Comment: Perf ormed at: WB Performed By: #### [id number] #### [facility] [address] [place] [address] Dr. Suzie Lundberg Age Gdln ACOG Testing 30-65 [facility] Comment on above: Performed By: #### [id number] #### [facility] [address] [address] [address] Suzie Lundberg DIAGNOSIS: Comment [facility] Comment on above: Result Comment: NEGA TIVE FOR INTRAEPITHELIAL LESION OR MALIGNANCY. FUNGAL ORGANISMS MORPHOLOGICALLY CONSISTENT WITH MARLENI SPECIES ARE PRESENT. CELLULAR CHANGES ASSOCIATED WITH INFLAMMATION ARE PRESENT. Performed at: WB Performed By: #### [id number] #### [facility] [address] [place] [address] Dr. Suzie Lundberg HPV Aptima Negative Normal Negative [facility] Comment on above: Result Comment: This nucleic acid amplification test detects fourteen high-risk HPV types (16,18,31,33,35,39,45,51,52,56,58,59,66,68) without differentiation. Performed at: =G Performed By: #### [id number] #### [facility] [address] [place] [address] Dr. Suzie Lundberg Methodology: Comment Normal [facility] Comment on above: Result Comment: This liquid based ThinPrep(R) pap test was screened with the use of an image guided system. Performed at: WB Performed By: #### [id number] #### [facility] [address] [place] [address] Dr. Suzie Lundberg Note: Comment Normal [facility] Comment on above: Result Comment: The Pap smear is a screening test designed to aid in the detection of premalignant and malignant conditions of the uterine cervix. It is not a diagnostic procedure and should not be used as the sole means of detecting cervical cancer. Both false-positive and false-negative reports do occur. . Performed at: WB Performed By: #### [id number] #### [facility] [address] [place] [address] Dr. Suzie Lundberg Performed by: Comment Normal [facility] Comment on above: Result Comment: Connor Hernandez, Glass Driller (ASCP) Performed at: WB Performed By: #### [id number] #### [facility] [address] [place] [address] Dr. Suzie Lundberg Specimen adequacy: Comment Normal [facility] Comment on above: Result Comment: Sati sfactory for evaluation. No endocervical cells are present. This is consistent with a history of hysterectomy. Performed at: WB Performed By: #### [id number] #### [facility] [address] [place] [address] Dr. Suzie Lundberg COVID-19 Antigenon 1 COVID-19 [...] its performance Andree Disclaimer characteristic determined by [employer] and Andree Disclaimer validated at [facility]. This Andree Disclaimer test has not been [...] is terminated or revoked sooner. PERFORMED BY: [place] [id number] PATHOLOGIST RN HEMODIALYSIS CHARGE GENNA CARRERA M.D. Normal [facility] Comment on above: Performed By: #### C OVID-19 ANDREE, SOFIANEG #### [place] [id number] [facility] Andree Ag Negativeon 10-22-20 21 Andree Ag Negative Negative Normal Negative [facility] Comment on above: Result Comment: This is a duplicate Andree SARS Antigen (EDIE) result to be used for statistical tracking purpose only. PERFORMED BY: [place] [id number] PATHOLOGIST RN HEMODIALYSIS CHARGE GENNA CARRERA M.D. Performed By: #### C OVID-19 ANDREE, SOFIANEG #### [facility] [address] [place], [place] [id number] [facility] Encounters Encounter Date Encounter Type Care Provider Facility Start: 11-04-2022 End: 11-05-[address] MOISÉS FONTANEZ Facility:[facility] Start: 09-10-2022 End: 09-11-[address] MOISÉS FONTANEZ Facility:[facility] Start: 07-26-2022 Encounter for genera l adult medical examination without abnormal findings DR MOISÉS FONTANEZ [facility] Start: 07-23-2022 End: 07-24-[address] MOISÉS FONTAENZ Facility:[facility] Start: 07-23-2022 End: 07-24-2022 Encounter for general adult medical examination without abnormal findings DR MOISÉS FONTANEZ Facility:[facility] Start: 06-03-2022 End: 06-04-[address] RG WHITE Facility:[facility] Start: 01-15-2022 End: 01-15-[address] RG WHITE Facility:[facility] Payers Date Payer Category Payer Unknown [id number] [id number] [id number] 1965 Unknown [id number] 2.16.84 [id number] 1963 Unknown [id number] 2.16.84 [id number] 1963 Unknown [id number] 2.16.84 [id number] 1959 Self-pay [id number] 1961 Unknown [id number] Unknown [id number] 2.16.84 [id number] Summary Purpose Family History No Family History Records FoundNo Family History Records Found Advance Directives No Advanced Directives Records FoundNo Advanced Directives Records Found Additional Source Comments INFORMATION SOURCE (unrecogn ized section and content) DATE CREATED AUTHOR 02/02/2022 [facility] DATE CREATED AUTHOR AUTHOR'S ELVISIZ ATION 11/11/2022 [facility] FOR RECORDS PERTAINING TO PATIENTS WHO ARE [...] BE BASED ON THE PRIMARY CLINICAL RECORDS. [employer] [facility] provides no warranty or guarantee of the accuracy or completeness of information in this document.
== END 2024-11-06 07:19 | disposition home or self-care (01) ==
LOC: MAMMO 07:18
PROVIDERS: PCP Family Medicine; Visit Provider Family Medicine
DX: Z12.31 Encounter for screening mammogram for malignant neoplasm of breast (principal); Z80.0 Family history of malignant neoplasm of digestive organs; Z80.52 Family history of malignant neoplasm of bladder; Z80.1 Family history of malignant neoplasm of trachea, bronchus and lung
CPT/HCPCS: 77063; 77067

== ENCOUNTER 2025-10-08 09:40 | Outpatient (OUT) | payer BC, SELFPAY ==
--- OUTSIDE RECORDS SUMMARY | 2025-10-08 09:45 | XMS_ITS | Clinical Summary ---
Author Organization [facility] Address [address] [place] [address] Care Team Providers Care Mat Sewer Name Role Phone Unavailable Primary Care Provider Unavailabl e Social History Tobacco UseTypesPacks/DayYears UsedDateSmoking Tobacco: Never Assessed CommentsUnknownSex and Gender InformationValueDate RecordedSex Assigned at Not on fileLegal WdgOprguj36/15/2023 11:47 PM EDTGender IdentityNot on file Sexual OrientationNot on file Plan of Treatment Not on file
--- OUTSIDE RECORDS SUMMARY | 2025-10-08 09:57 | XMS_ITS | CCD ---
Author Organization [facility] Care Team Providers Care Compliance Professional Name Role Phone HUSEYIN, DR CURIEL Admitting [...] Care Unavailable KARASIK, DR DIEZ Consulting Unavailable Unavailable Primary Care Provider Unavailabl e Problems Active Problems Problem ClassificationProblemDateDocumented DateEpisodic/ChronicOsteoporosis (1 source)Age-related osteoporosis without current pathological fracture; Translations: [AGE-REL OSTEOPOR W/OCURR PATH FX]Onset: 10-81-4866WaxlmuaWlpav screening for suspected conditions (not mental disorders or infectious disease) (8 sources)Encounter for screening mammogram for malignant neoplasm of breast; Translations: [Encounter for screening for malignant neoplasm of cervix]Onset: 65-75-0002MddvdfvoYndmjqts codes; unclassified (1 source)Family history of malignant neoplasm of digestive organs; Translations: [FAM HX MALIG NEOPLASM DIGESTIV ORGN]Onset: 91-40-8615Qrdrbdug Residual codes; unclassified (1 source)Family history of malignant neoplasm of breast; Translations: [FAMILY HX MALIG NEOPLASM OF BREAST]Onset: 53-26-9009CjfvsytxBaucdstd codes; unclassified (1 source)Family history of malignant neoplasm of trachea, bronchus and lung; Translations: [FAM HX MALIG NEOPLSM TRACH BRON LNG]Onset: 98-87-4726Hhnbabus Past or Other Problems Problem ClassificationProblemDateDocumented DateEpisodic/ChronicImmunizations and screening for infectious disease (1 source)Encounter for screening for human papillomavirus (HPV); Translations: [ENC SCREENING HUMAN PAPILLOMAVIRUS]Onset: 03-53-3469WoyemxgaLahvzhxn codes; unclassified (4 sources)Asymptomatic menopausal state; Translations: [ASYMPTOMATIC MENOPAUSAL STATE]Onset: 88-40-8831Vgqlkrso Results Test NameValueInterpretationReference RangeFacilityMM TOMOSYNTHESIS SCREENING BI on 46-82-0826[place] [address] Mammography Report Signed Patient: GIOVANNY BECKFORD MR#: [id number] : 1965 Acct:[id number] Age/Sex: 58 / F ADM Date: 11/05/23 Loc: MAMMO Attending Dr: Baldo Bravo D.O. Ordering Physician: Baldo Bravo D.O. Results: Date of Service: 11/05/23 Follow Up: Procedure(s): MM tomosynthesis screening BI Accession Number(s): [id number] cc: Baldo Bravo D.O.; Moisés Bynum M.D. Patient Name: GIOVANNY BECKFORD MR#: [id number] : 1965 Exam Date: 11/05/2023 Ordering Doctor: DR Baldo Bravo . RADIOLOGY REPORT PROCEDURE: MM TOMOSYNTHESIS SCREENING BI COMPARISON: MG MAMM SCREEN 3D ANTHONY CAD, 11/04/2022. MG MAMM SCREEN 3D ANTHONY CAD, 10/29/2021. MG MAMM SCREEN ANTHONY W CAD, 10/25/2020. MG MAMM ANTHONY SCRN W CAD DIG, 10/05/2013. INDICATIONS: Anthony Screening Mammogram Calculator Name NCI Breast Cancer Risk Assessment Tool 5 Year Breast Cancer Risk 1.40% Lifetime Breast Cancer Risk 7.20% Personal Breast Cancer No Personal Ovarian Cancer No Treatments None Family Cancers Grandfather-maternal with colon cancer at age 70; Grandmother-paternal with breast cancer at age 74; Grandmother-maternal with lung cancer at age 74. LOCATION: [facility] BREAST COMPOSITION: Heterogeneously dense,which may obscure small [...] BIOPSIED. Dictated by: Pepe Sterling M.D. on 11/05/2023 at 14:30 Approved by: Pepe Sterling M.D. on 11/05/2023 at 14:34 Dictated By: Pepe Sterling M.D. Signed By: 11/05/23 1435 DD/ 34 TD/TT: Manager Technical Support:TBHRadiology, Radiologist, MD - 11/05/2023 [place] [address] Mammography Report Signed Patient: GIOVANNY BECKFORD MR#: [id number] : 1965 Acct:[id number] Age/Sex: 58 / F ADM Date: 11/05/23 Loc: MAMMO Attending Dr: Baldo Bravo D.O. Ordering Physician: Baldo Bravo D.O. Results: Date of Service: 11/05/23 Follow Up: Procedure(s): MM tomosynthesis screening BI Accession Number(s): [id number] cc: Baldo Bravo D.O.; Moisés Bynum M.D. Patient Name: GIOVANNY BECKFORD MR#: [id number] : 1965 Exam Date: 11/05/2023 Ordering Doctor: DR Baldo Bravo . RADIOLOGY REPORT PROCEDURE: MM TOMOSYNTHESIS SCREENING BI COMPARISON: MG MAMM SCREEN 3D ANTHONY CAD, 11/04/2022. MG MAMM SCREEN 3D ANTHONY CAD, 10/29/2021. MG MAMM SCREEN ANTHONY W CAD, 10/25/2020. MG MAMM ANTHONY SCRN W CAD DIG, 10/05/2013. INDICATIONS: Anthony Screening Mammogram Calculator Name NCI Breast Cancer Risk Assessment Tool 5 Year Breast Cancer Risk 1.40% Lifetime Breast Cancer Risk 7.20% Personal Breast Cancer No Personal Ovarian Cancer No Treatments None Family Cancers Grandfather-maternal with colon cancer at age 70; Grandmother-paternal with breast cancer at age 74; Grandmother-maternal with lung cancer at age 74. LOCATION: [facility] BREAST COMPOSITION: Heterogeneously dense,which may obscure small [...] BIOPSIED. Dictated by: Pepe Sterling M.D. on 11/05/2023 at 14:30 Approved by: Pepe Sterling M.D. on 11/05/2023 at 14:34 Dictated By: Pepe Sterling M.D. Signed By: 11/05/235 DD/ 34 TD/TT: Manager Technical Support: [facility] HospitalRadiology Study observation (narrative)[facility] TOMOSYNTHESIS SCREENING BIOrdered By: Radiologist Radiology on 12-02-8990FQC[facility] Work Phone: MG MAMM SCREEN 3D ANTHONY CADon 19-38-8358RG MAMM SCREEN 3D ANTHONY CADPatient: GIOVANNY BECKFORD Exam Date: 11/04/2022 : 1965 Gender:F Ordering : DR MOISÉS BYNUM . Admission #: [id number] Family : Order #: [id number] CLICK HERE TO VIEW EXAM RADIOLOGY REPORT PROCEDURE: MAMMOGRAM SCREENING 3D BILATERAL CAD COMPARISON: MG MAMM SCREEN ANTHONY W CAD, 10/25/2020. MG MAMM SCREEN ANTHONY W CAD, 10/18/2019. DIGITIZED_MAMMO, 08/16/2009. MG MAMM SCREEN 3D ANTHONY CAD, 10/29/2021. INDICATIONS: Screening mammography Calculator Name NCI Breast Cancer Risk Assessment Tool 5 Year Breast Cancer Risk 1.40% Lifetime Breast Cancer Risk 7.40% Personal Breast Cancer No Personal Ovarian Cancer No Treatments None Family Cancers Grandfather-maternal with colon cancer at age 70; Grandmother-paternal with breast cancer at age 74; Grandmother-maternal with lung cancer at age 74. LOCATION: [facility] BREAST COMPOSITION: Heterogeneously dense,which may obscure small [...] by: Pepe Sterling M.D. on 11/04/2022 at 10:42[facility] HospitalCB AUTO DIFFon 26-75-8040MPOK #0.1 103/ulNormal0.0-0.1Providence HospitalComment on above:Performed By: #### CBC #### [facility] [address] [address] [address] Suzie LundbergBasophils/100 WBC (Bld)1.3 %Normal0.2-2.0[facility] Comment on above:Performed By: #### CBC #### [facility] [address] [address] [address] Suzie Mosley #0.2 103/ulNormal0.0-0.7ThSt. Rita's HospitalComment on above: Performed By: #### CBC #### [facility] [address] [address] [address] Suzie Maierosinophils/100 WBC (Bld)3.1 %Normal0.9-7.0[facility] Comment on above:Performed By: #### CBC #### [facility] [address] [address] [address] Suzie Maierrythrocyte distribution width (RBC) [Ratio]12.1 %Mdrypx31.0-15.0 [facility] HospitalComment on above:Performed By: #### CBC #### [facility] [address] [place] [address] Dr. Suzie LundbergHematocrit (Bld) [Volume fraction]38.7 %Yamvfc65.0-48.0[facility] HospitalComment on above:Performed By: #### CBC #### [facility] [address] [place] [address] Dr. Suzie LundbergHemoglobin (Bld) [Mass/Vol]12.9 g/fJJsdeuq13.0-16.0The [facility] HospitalComment on above:Performed By: #### CBC #### [facility] [address] [place] [address] Dr. Suzie Gabriel #0.01 10e3/ulNormal0.00-0.03The [facility] HospitalComment on above:Performed By: #### CBC #### [facility] [address] [place] [address] Dr. Suzie Gabriel %0.2 %Normal0.0-0.5The [facility] HospitalComment on above: Performed By: #### CBC #### [facility] [address] [place] [address] Dr. Suzie Valenzuela #1.8 103/ulNormal1.2-3.8[facility] HospitalComaspirus ke[facility] on above:Performed By: #### CBC #### [facility] [address] [place] [address] Dr. Suzie Duboismphocytes/100 WBC (Bld)32.8 %Ornjjw88.5-60.0The [facility] HospitalComment on above:Performed By: #### CBC #### [facility] [address] [place] [address] Dr. Suzie PradoUAL DIFF REQNONormalThe [facility] HospitalComment on above: Performed By: #### CBC #### [facility] [address] [place] [address] Dr. Suzie Foley (RBC) [Entitic mass]33.8 tsVnjtwn10.7-34.0The [facility] HospitalComment on above:Performed By: #### CBC #### [facility] [address] [place] [address] Dr. Suzie Wheatley (RBC) [Mass/Vol]33.3 g/gSFommtc69.9-35.2The [facility] HospitalComment on above:Performed By: #### CBC #### [facility] [address] [place] [address] Dr. Suzie Wheatley (RBC) [Entitic vol]101.3 fLCritically high81.0-99.0The [facility] HospitalComment on above:Performed By: #### CBC #### [facility] [address] [place] [address] Dr. Suzie Sue #0.5 103/ulNormal0.3-0.8The [facility] HospitalComment on above:Performed By: #### CBC #### [facility] [address] [place] [address] Dr. Suzie Torresocytes/100 WBC (Bld)9.4 %Normal1.7-12.0[facility] Comment on above:Performed By: #### CBC #### [facility] [address] [place] [address] Dr. Suzie Shaw #2.9 103/ulNormal1.4-6.5The [facility] HospitalComment on above:Performed By: #### CBC #### [facility] [address] [place] [address] Dr. Suzie Hanksophils/100 WBC (Bld)53.2 %Dsdtdt28.0-75.0The [facility] HospitalComment on above:Performed By: #### CBC #### [facility] [address] [place] [address] Dr. Suzie Nicole mean volume (Bld) [Entitic vol]10.0 fLNormal9.5-13.5The [facility] HospitalComment on above:Performed By: #### CBC #### [facility] [address] [place] [address] Dr. Suzie McbrideT234 103/gsDfxvje157-199Gbs [facility] on above: Performed By: #### CBC #### [facility] [address] [place] [address] Dr. Suzie LundbergRBC3.82 106/ulCritically low4.20-5.40The [facility] on above:Performed By: #### CBC #### [facility] [address] [place] [address] Dr. Suzie LundbergWBC5.4 103/ulNormal4.0-11.0The [facility] on above: Performed By: #### CBC #### [facility] [address] [place] [address] Dr. Suzie LundbergGLYCOHEMOGLOBIN A1Con 99-81-8052PJM RECOMMENDATIONSEE BELOWPromedica Defiance Regional HospitalComaspirus keweenaw hospital on above:Result Comment: ADA RECOMMENDED LIMIT 4.0 - 6.0 ADA THERAPEUTIC TARGET < 7.0 ACTION SUGGESTED > 7.0Performed By: #### A1C #### [facility] [address] [place] [address] Dr. Suzie LundbergGlucose [Mass/Vol]103 mg/dLNoDayton Children's Hospital on above:Performed By: #### A1C #### [facility] [address] [place] [address] Dr. Suzie LundbergHbA1c (Bld) [Mass fraction]5.2 %Normal4.5-6.2The [facility] on above:Performed By: #### A1C #### [facility] [address] [place] [address] Dr. Suzie LundbergLIPID PROFILEon 70-66-4299HRSV-HDL RATIO NORMSEE [facility] CenterComaspirus keweenaw hospital on above:Result Comment: 3.3 - 4.4 LOW RISK 4.4 - 7.1 AVERAGE RISK 7.1 - 11.0 MODERATE RISK >11.0 HIGH RISKPerformed By: #### LIPID, CMP, TSH #### [facility] [address] [place] [address] Dr. Suzie LundbergCholesterol [Mass/Vol]204 mg/dLCritically high<=200The [facility] HospitalComment on above:Performed By: #### LIPID, CMP, TSH #### [facility] [address] [place] [address] Dr. Suzie Pettyesterol in HDL [Mass/Vol]73 mg/dLCritically lrfg51-79Qws [facility] HospitalComment on above:Performed By: #### LIPID, CMP, TSH #### [facility] [address] [address] [address] Suzie Pettyesterol in LDL [Mass/Vol]124.6 mg/dLNoKettering Health Washington TownshipComment on above:Performed By: #### LIPID, CMP, TSH #### [facility] [address] [place] [address] Dr. Suzie Weinstein.total/Cholesterol in HDL [Mass ratio]2.8 {ratio} NormalThe [facility] HospitalComment on above:Performed By: #### LIPID, CMP, TSH #### [facility] [address] [place] [address] Dr. Suzie Childs NORMAL> or = 60 mg/dl - LOW CARDIOVASCULAR RISK <40 mg/dl - HIGH CARDIOVASCULAR RISKDayton Osteopathic HospitalComment on above:Performed By: #### LIPID, CMP, TSH #### [facility] [address] [place] [address] Dr. Szuie Silva CALC NORMALSEE BELOWNoKettering Health Washington TownshipComment on above:Result Comment: <100 mg/dl OPTIMAL 100 - 129 mg/dl NEAR OR ABOVE OPTIMAL 130 - 159 mg/dl BORDERLINE HIGH 160 - 189 mg/dl HIGH >190 mg/dl VERY HIGH Performed By: #### LIPID, CMP, TSH #### [facility] [address] [place] [address] Dr. Suzie LundbergTriglyceride [Mass/Vol]32 mg/dLNormal<=150The [facility] Comment on above:Performed By: #### LIPID, CMP, TSH #### [facility] [address] [place] [address] Dr. Yilan ChangVLDL CALC6.4 mg/dLNormalThe [facility] HospitalComment on above: Performed By: #### LIPID, CMP, TSH #### [facility] [address] [address] [address] Suzie Deleon 14(COMP METB)on 75-41-0885Cdmcxie [Mass/Vol]3.9 g/dLNormal 3.4-5.0The [facility] HospitalComment on above:Performed By: #### LIPID, CMP, TSH #### [facility] [address] [place] [address] Dr. Suzie LundbergAlbumin/Globulin [Mass ratio]1.4 {ratio}NormalThe [facility] HospitalComment on above:Performed By: #### LIPID, CMP, TSH #### [facility] [address] [place] [address] Dr. Suzie Mitchell [Catalytic activity/Vol]80 U/RFacejx93-400Ynb [facility] HospitalComment on above:Performed By: #### LIPID, CMP, TSH #### [facility] [address] [place] [address] Dr. Suzie Campo [Catalytic activity/Vol]20 U/URkpzms46-95Nth [facility] HospitalComment on above:Performed By: #### LIPID, CMP, TSH #### [facility] [address] [place] [address] Dr. Suzie Mace gap [Moles/Vol]14.4 mmol/LNormalThe [facility] Comment on above:Performed By: #### LIPID, CMP, TSH #### [facility] [address] [place] [address] Dr. Suzie Lester [Catalytic activity/Vol]14 U/LCritically yzi20-79Ssf [facility] HospitalComment on above:Performed By: #### LIPID, CMP, TSH #### [facility] [address] [place] [address] Dr. Suzie LundbergBilirubin [Mass/Vol]0.2 mg/dLNormal0.2-1.0The [facility] Comment on above:Performed By: #### LIPID, CMP, TSH #### [facility] [address] [address] [address] Suzie LundbergCalcium [Mass/Vol]8.6 mg/dLNormal8.5-10.1The [facility] Comment on above:Performed By: #### LIPID, CMP, TSH #### [facility] [address] [address] [address] Suzie LundbergChloride [Moles/Vol]105 mmol/NZxmxbu59-966Ybn [facility] Comment on above:Performed By: #### LIPID, CMP, TSH #### [facility] [address] [address] [address] Suzie LundbergCO2 [Moles/Vol]28.3 mmol/XKegfvf30.0-32.0The [facility] Comment on above:Performed By: #### LIPID, CMP, TSH #### [facility] [address] [place] [address] Dr. Suzie LundbergCreatinine [Mass/Vol]0.70 mg/dLNormal0.55-1.02The [facility] HospitalComment on above:Performed By: #### LIPID, CMP, TSH #### [facility] [address] [address] [address] Suzie MaierGFR-AF URUGUAYAN>60Normal>=60The [facility] HospitalComment on above:Performed By: #### LIPID, CMP, TSH #### [facility] [address] [address] [address] Suzie Troy-NON AF URUGUAYAN>60Normal>=60The [facility] HospitalComment on above:Performed By: #### LIPID, CMP, TSH #### [facility] [address] [address] [address] Suzie LundbergGlobulin (S) [Mass/Vol]2.7 g/dLNormalThe [facility] HospitalComment on above:Performed By: #### LIPID, CMP, TSH #### [facility] [address] [place] [address] Dr. Suzie LundbergGlucose [Mass/Vol]100 mg/dMMtuexh35-363Cuo [facility] Comment on above:Performed By: #### LIPID, CMP, TSH #### [facility] [address] [place] [address] Dr. Suzie LnudbergPotassium [Moles/Vol]4.7 mmol/LNormal3.5-5.1The [facility] Comment on above:Performed By: #### LIPID, CMP, TSH #### [facility] [address] [place] [address] Dr. Suzie LundbergProtein [Mass/Vol]6.6 g/dLNormal6.4-8.2The [facility] Comment on above:Performed By: #### LIPID, CMP, TSH #### [facility] [address] [place] [address] Dr. Suzie LundbergSodium [Moles/Vol]143 mmol/IUpcvsj115-142Seh [facility] Comment on above:Performed By: #### LIPID, CMP, TSH #### [facility] [address] [place] [address] Dr. Suzie LundbergUrea nitrogen [Mass/Vol]11.0 mg/dLNormal7.0-18.0Providence HospitalComment on above:Performed By: #### LIPID, CMP, TSH #### [facility] [address] [place] [address] Dr. Suzie Kohli nitrogen/Creatinine [Mass ratio]15.7 mg/mgNormalThe [facility] HospitalComment on above:Performed By: #### LIPID, CMP, TSH #### [facility] [address] [place] [address] Dr. Suzie Johnson 80-13-7228JRI5.421 uIU/mLNormal0.358-3.740Providence HospitalComment on above:Performed By: #### LIPID, CMP, TSH #### [facility] [address] [place] [address] Dr. Suzie Llanos DEXA BONE DENSITYon 92-03-3637CF DEXA BONE DENSITYEXAMINATION: XR DEXA BONE DENSITY, 06/03/2022 7:54 AM EDT HISTORY: [...] Electronically authenticated by: PEPE STERLING Date: 2022-06-03 20:18[facility] ACOG PANEL 2: 30 to 65on 01-21-2022..NormalThe [facility] HospitalComment on above:Result Comment: Performed at: WBPerformed By: #### [id number] #### [facility] [address] [place] [address] Dr. Suzie Dillard Gdln ACOG Zgfamrp65-12QbpocgVelKettering Health Washington TownshipComment on above:Performed By: #### [id number] #### [facility] [address] [place] [address] Dr. Suzie LundbergDIAGNOSIS:CommentNoDayton Children's Hospital on above: Result Comment: NEGATIVE FOR INTRAEPITHELIAL LESION OR MALIGNANCY. FUNGAL ORGANISMS MORPHOLOGICALLY CONSISTENT WITH MARLENI SPECIES ARE PRESENT. CELLULAR CHANGES ASSOCIATED WITH INFLAMMATION ARE PRESENT. Performed at: WBPerformed By: #### [id number] #### [facility] [address] [place] [address] Dr. Suzie LundbergHPV AptimaNegativeNormalNegativeTriHealth on above:Result Comment: This nucleic acid amplification test detects fourteen high-risk HPV types (16,18,31,33,35,39,45,51,52,56,58,59,66,68) without differentiation. Performed at: =GPerformed By: #### [id number] #### [facility] [address] [place] [address] Dr. Suzie LundbergMethodology:CommentNoDayton Children's Hospital on above: Result Comment: This liquid based ThinPrep(R) pap test was screened with the use of an image guided system. Performed at: Performed By: #### [id number] #### [address] [address] Dr[address] Suzie LundbergNote:CommentMercy Health Tiffin Hospital on above:Result Comment: The Pap smear is a screening test designed to aid in the detection of premalignant and malignant conditions of the uterine cervix. It is not a diagnostic procedure and should not be used as the sole means of detecting cervical cancer. Both false-positive and false-negative reports do occur. . Performed at: WBPerformed By: #### [id number] #### [address] [address] Dr[address] Suzie LundbergPerformed by:CommentMercy Health Tiffin Hospital on above: Result Comment: Rene Hernandez, Research Neuropsychologist (ASCP) Performed at: WBPerformed By: #### [id number] #### [address] [address] Dr[address] Suzie LundbergSpecimen adequacy:CommentMercy Health Tiffin Hospital on above:Result Comment: Satisfactory for evaluation. No endocervical cells are present. This is consistent with a history of hysterectomy. Performed at: WBPerformed By: #### [id number] #### [address] [address] Dr[address] Suzie LundbergCOVID-19 Antigenon 65-88-0920ABQLF-19 AntigenHealthcare Worker?: N Andree Reference Andree Reference Negative [...] its performance Andree Disclaimer characteristic determined by [employer] and Andree Disclaimer validated at [facility]. This Andree Disclaimer test has not been [...] is terminated or revoked sooner. PERFORMED BY: [place] [address] PATHOLOGIST MEDICAL OFFICE SCHEDULER GENNA CARRERA M.D.NormalParkview HealthComment on above: Performed By: #### COVID-19 ANDREE, SOFIANEG #### [facility] [address] [place] [address] USASofia Ag Negativeon 99-91-9451Nsvha Ag NegativeNegative NormalNegativeParkview HealthComment on above:Result Comment: This is a duplicate Andree SARS Antigen (EDIE) result to be used for statistical tracking purpose only. PERFORMED BY: [address] [place] [id number] PATHOLOGIST MEDICAL OFFICE SCHEDULER GENNA CARRERA M.D.Performed By: #### COVID-19 ANDREE, SOFIANEG #### [facility] [address] [place], [place] [address] [place] Encounters Encounter DateEncounter TypeCare ProviderFacilityStart: 11-05-2023 End: 28-11-2558Oselgeurq Result EncounterCorey Shelly DO Work Phone: noms External Department UnsolicitedStart: 11-05-2023 End: 42-82-7385Acrieylhf Result EncounterCorey Shelly DO Work Phone: noms External Department UnsolicitedStart: 11-04-2022 End: 98-33-4531ffifjbmvahGT MOISÉS HOYFacility:I4Yzsms: 09-10-2022 End: 05-25-9786ajzlflwahwPO MOISÉS HOYFacility:K9Dzoaw: 06-77-2558Vrtjerveu for general adult medical examination without abnormal findingsDR MOISÉS Mccullough [facility] Hospitaltart: 07-23-2022 End: 34-75-1936gfqlprfiqqTE MOISÉS HOYFacility:I1Dwljz: 07-23-2022 End: 53-85-5701Kcchucyvl for general adult medical examination without abnormal findingsDR MOISÉS BYNUMFacility:I6Mpjiz: 06-03-2022 End: 70-67-5050isfyvffxqyUP RG WHITEFacility:L6Zhouo: 01-15-2022 End: 64-02-2096gyvkcvzqsiJO RG WHITEFacility:H1 Procedures DateProcedureProcedure DetailPerforming ClinicianStart: 39-93-1416KG TOMOSYNTHESIS SCREENING Raul Bravo DO Work Phone: Payers DatePayer CategoryPayerPolicy [id number]-[id number] [id number] Social History DateTypeDetailFacilityTobacco smoking status NHISTobacco smoking consumption unknownNOMS HealthcareStart: 37-26-9644Ncc assigned at birthNot on fileNOMS HealthcareStart: 35-61-0408MrpSxsxxhZZHI HealthcareGender identityNot on file [facility] Summary Purpose Family History No Family History Records FoundNo Family History Records Found Advance Directives No Advanced Directives Records FoundNo Advanced Directives Records Found Additional Source Comments INFORMATION SOURCE (unrecogn ized section and content) DATE CREATED AUTHOR 02/02/2022 [facility] DATE CREATED AUTHOR AUTHOR'S ORGANIZ ATION 11/11/2022 [facility] [facility] FOR RECORDS PERTAINING TO PATIENTS WHO [...] BE BASED ON THE PRIMARY CLINICAL RECORDS. [facility] [employer], [facility]. provides no warranty or guarantee of the accuracy or completeness of information in this document.
[2025-10-08 10:11] LABS: Hematocrit 41.0 % (36.0-48.0); Hemoglobin 13.9 g/dL (12.0-16.0); Immature Granulocytes Abs Auto 0.00 10^3/uL (0.00-0.03); Immature Granulocytes Pct Auto 0.0 % (0.0-0.5); Lymphocytes Absolute Auto 1.8 10^3/uL (1.2-3.8); Mean Corpuscular HGB Conc 33.9 g/dL (29.9-35.2); Mean Corpuscular Hemoglobin 34.8 pg (26.7-34.0); Mean Corpuscular Volume 102.8 fL (81.0-99.0); Platelet Count 234 10^3/uL (150-450); Red Blood Count 3.99 10^6/uL (4.20-5.40); White Blood Count 4.7 10^3/uL (4.0-11.0)
[2025-10-08 10:37] LABS: Alanine Aminotransferase 23 U/L (14-59); Albumin Globulin Ratio 1.3; Albumin Level 4.1 g/dL (3.4-5.0); Alkaline Phosphatase 86 U/L (46-116); Anion Gap 12.7; Aspartate Amino Transferase 17 U/L (15-37); Blood Urea Nitrogen 25.0 mg/dL (7.0-18.0); Calcium 8.9 mg/dL (8.5-10.1); Carbon Dioxide 28.3 mmol/L (21.0-32.0); Chloride 105 mmol/L (98-107); Cholesterol 237 mg/dL (<=200); Estimated GFR (African America >60 (>=60 mL/min/1.73m^2); Estimated GFR (Non-African Ame >60 (>=60 mL/min/1.73m^2); Free T3 2.46 pg/mL (2.18-3.98); Globulin 3.1 g/dL; Glucose 87 mg/dL (74-106); HDL Cholesterol 66 mg/dL (40-60); Potassium 4.0 mmol/L (3.5-5.1); Sodium 142 mmol/L (136-145); Thyroid Stimulating Hormone 1.945 uIU/mL (0.358-3.740); Total Protein 7.2 g/dL (6.4-8.2); Triglycerides 114 mg/dL (<=150); VLDL CHOLESTEROL 22.8 mg/dL
[2025-10-08 10:52] LABS: Iron 154.0 ug/dL (50.0-170.0)
== END 2025-10-08 09:41 | disposition home or self-care (01) ==
PROVIDERS: PCP Family Medicine; Visit Provider Family Medicine
DX: Z00.00 Encounter for general adult medical examination without abnormal findings (principal)
CPT/HCPCS: 36415; 80053; 80061; 83036; 83540; 84436; 84443; 84481; 85025

== ENCOUNTER 2025-10-09 10:39 | Outpatient (OUT) | payer BC, SELFPAY ==
--- OUTSIDE RECORDS SUMMARY | 2025-10-08 04:00 | XMS_ITS ---
Author Organization [facility] in [place] Address [address] [place] [address] Care Team Providers Care Certified Nurses' Aide Name Role Phone Walker Bynum Primary Care Provider [phone] Allergies No Known Allergies REASON FOR VISIT Presents to office alone for annual wellness Medications Medication SIG (Take, Route, Frequency, Duration) Notes Start Date End Date Status valACYclovir HCl 1 GM TAKE 1 TABLET BY MOUTH ONC E DAILY; Duration: 90 days Active Social History Tobacco Use: Social History Observation Description Date Details (start date - stop date) Never Smoker NA - NA Tobacco Use/Smoking Question Answer Notes Patient is a nonsmoker AUDIT-C (Standard) Question Answer Notes Did you have a drink containing alcohol in the p ast year? No [id number] Vital Signs Blood pressure systolic 132 mm Hg 10/08/20 25 Blood pressure diastolic 80 mm Hg 025 Height 63 in 10/08/2025 Weight 128.8 lbs 10/08/2025 BMI 22.81 kg/m2 10/08/2025 Encounters Encounter Location Date Provider Diagnosis [facility] [address] [place] [address] 10/08/2025 Walkre Bynum Well adult Z00.0 0 Assessments Encounter Date Diagnosis (ICD Code) Assessment Notes Treatment Notes Treatment Clinical Notes Section Notes 10/08/2025 Well adult (ICD-10 - Z00.00) Plan Of Treatment Medication Medication Name Sig Start Date Stop Date Notes valACYclovir HCl 1 GM TAKE 1 TABLET BY MOUTH ONC E DAILY; Duration: 90 days Pending Test Test Name Order Date HEMOGLOBIN A1C (GLYCO) 10/08/2025 IRON, TOTAL 10/08/2025 LIPID PANEL (CHOL/TRIG/HDL/LDL) 10/08/20 25 THYROID PANEL (T4/TSH/FREE T3) 5 MM screening mammo BI 10/08/2025 CMP (COMP MET WILKINS) w/eGFR CKD-EPI 2024 CBC WITH DIFF 10/08/2025 Progress Notes * Segundo BECKFORDBuzzB:1965 ([age] yo F)Acc No.[id number]:10/08/2025 Progress Note Patient: Lynne GUTIERREZ :?Jaziel Bynum ([facility]), MDDOB:1965???Age: 60 Y???Sex:FemaleDate:10/08/2025Phone:[phone]:[address] [place] [address] [address], [id number] In:08:53 AM ESTCheck Out:09:32 AM EST Subjective: * Chief Complaints: * P resents to office alone for annual wellness * HPI: ???General:? Daniela any issues still on valcyclovir - no issues. ???Depression Screening:?PHQ-2 (2015 Edition)?Little interest or pleasure in doing things? Not at all ?Feeling down, depressed, or hopeless??Not at all ?Total Score?0 * ROS: ???EENT:?hearing changes?denies, denies.?visual changes?denies, denies.?non-healing mouth sores?denies, denies.?swollen glands or neck lumps denies, denies.?hoarseness?denies, denies.?sore throat?denies, denies.?difficulty swallowing?denies, denies.?nose bleeds?denies, denies.?nasal congestion?denies, denies.?ear ache?denies, denies.?ear discharge?denies, denies. ringing in ears?denies, denies.?light sensitivity?denies, denies.?eye pain denies, denies.?blurring?denies, denies.?eye irritation?denies, denies.?double vision?denies, denies.?vision loss?denies, denies.?General/Constitutional:?Sweats:?Denies, Denies.?Fatigue?denies, denies. Sleep problems?denies, denies.?Anorexia?denies, denies.?Malaise?denies, denies.?Weight loss?denies, denies.?Fatigue or Weakness?denies, denies.?Fever or Chills?denies, denies.?Cardiovascular:?Shortness of Breath w/lying flat?denies, denies.?Light headedness/dizziness?denies, denies.?Chest tightness/ heavy pressure?denies, denies. Swelling of legs, ankles, or feet?denies, denies.?Waking up with shortness of breath denies, denies.?Chest pain?denies, denies.?Palpitations?denies, denies. Weight gain?denies, denies.?Respiratory:?Chronic or frequent cough?denies, denies.?Coughing upblood?denies, denies.?Difficulty breathing?denies, denies.?Productive cough denies, denies.?Snoring?denies, denies.?Shortness of breath that awakens from sleep (PND)?denies, denies.?Chest pain?denies, denies.?Sputum production?denies, denies.?Wheezing?denies, denies.?Musculoskeletal:?Joint pain?denies, denies.?Joint Fluid?denies, denies.?Back pain?denies, denies.?Knee pain?denies, denies.?Neck pain?denies, denies.?Joint Stiffness?denies, denies.?Muscle cramps?denies, denies. Weakness of muscles?denies, denies.?Arthritis?denies, denies.?Muscle aches denies, denies.?Pain in shoulder(s)?denies, denies.?Swollen joints?denies, denies.? * Active Problem List Z00.00 Well adult Modified On:09/02/2023W/U Status:cutihnxekU78.89Other specified diseases of blood and blood-forming organs Modified On:09/06/2023/U Status:confirmed * Medical History: * Surgical History: T onsillectomy Hysterectomy * Hospitalization/Major Diagno stic Procedure: * Family History: F ather: , lung cancer, diagnosed with Cancer, Heart Disease. M other: , diagnosed with Hypertension. 2 brother(s) , 3 sister(s) . 3 son(s) , 1 daughter(s) . . * Social History: ???Tobacco Use:?Tobacco Use/Smoking?Patient is a?nonsmoker ???Drug/Alcohol:?AUDIT-C (Standard)?Did you have a drink containing alcohol in the past year??No ?Points?0 ?Interpretation?Negative * Medications: T akingvalACYclovir HCl 1 GM Tablet TAKE 1 TABLET BY MOUTH ONCE DAILY Medication List reviewed and reconciled with the patientTaking valACYclovir HCl 1 GM Tablet TAKE 1 TABLET BY MOUTH ONCE DAILY Medication List reviewed and reconciled with the patient * Allergies: N .K.D.A.no[Allergies Verified] Objective: * Vitals: W t:128.8lbs, Ht: 63 in, BP:132/80mm Hg, BMI:22.81Index, Ht-cm: 160.02 cm, Wt-k.42 kg. * Examination: ???Physical Exam: ?GENERAL:?well developed, well nourished, in no acute distress , well developed, well nourished, in no acute distress.?HEAD:?normocephalic/atraumatic , normocephalic/atraumatic. ?EYES:?pupils equal, round and reactive to light, conjunctivae and sclerae normal , pupils equal, round and reactive to light, conjunctivae and sclerae normal. ?EARS:?no deformity or lesion of external ear, canals and TM appear normal bilaterally, TM's intact, not inflamed with normal light reflex, hearing grossly normal to conversational speech , no deformity or lesion of external ear, canals and TM appear normal bilaterally, TM's intact, not inflamed with normal light reflex, hearing grossly normal to conversational speech.?NOSE:?no deformity, discharge, inflammation, or lesions , no deformity, discharge, inflammation, or lesions.?MOUTH:?mucous membranes moist, normal oropharynx and posterior pharynx without lesions or exudates, tongue normal, dentition normal , mucous membranes moist, normal oropharynx and posterior pharynx without lesions or exudates, tongue normal, dentition normal.?NECK:?neck supple, no masses or palpable cervical nodes, trachea midline, thyroid without nodules, masses, tenderness, or enlargement , neck supple, no massesor palpable cervical nodes, trachea midline, thyroid without nodules, masses, tenderness, or enlargement.?CHEST:?no chest wall deformity, no chest wall tenderness ,no chest wall deformity, no chest wall tenderness.?LUNGS:?normal respiratory effort and clear to auscultation, no wheezes, rales, or rhonchi, good air exchange , normal respiratory effort and clear to auscultation, no wheezes, rales, or rhonchi, good air exchange.?CARDIO:?regular rate and rhythm, normal S1 and S2, nor murmur, rub, or gallop , regular rate and rhythm, normal S1 and S2, nor murmur, rub, or gallop.?PULSES:?normal capillary refill , normal capillary refill. ?ABDOMEN:?soft, non-distended, non-tender, no masses , soft, non-distended, non-tender, no masses.?MUSCULOSKELETAL:?no deformity or scoliosis noted, normal range of motion, joints normal, no erythema, edema, effusion, or ecchymosis , no deformity or scoliosis noted, normal range of motion, joints normal, no erythema, edema, effusion, or ecchymosis.?EXTREMITY:?no clubbing, cyanosis, edema, or deformity withnormal ROM in both upper and lower bilateral extremities , no clubbing, cyanosis, edema, or deformity with normal ROM in both upper and lower bilateral extremities.?NEUROLOGIC:?grossly normal , grossly normal.?SKIN:?no rashes, ulcerations, or suspicious lesions , no rashes, ulcerations, or suspicious lesions.?LYMPH NODES:?no cervical adenopathy, nodes normal , no cervical adenopathy, nodes normal.?MENTAL STATUS:?alert and oriented x3, normal mood and affect , alert and oriented x3, normal mood and affect.? Assessment: * Assessment: 1.?Well adult - Z00.00 (Primary)??? Plan: * Treatment: Refill valACYclovir HCl Tablet, 1 GM, TAKE 1 TABLET BY MOUTH ONCE DAILY, 90 days, 90, Refills 3. ?LAB: HEMOGLOBIN A1C (GLYCO) ?LAB: IRON, TOTAL ?LAB: LIPID PANEL (CHOL/TRIG/HDL/LDL) ?LAB: THYROID PANEL (T4/TSH/FREE T3) ?LAB: CMP (COMP MET WILKINS) w/eGFR CKD-EPI ?LAB: CBC WITH DIFF ?Imaging: MM screening mammo BI * Procedure Codes: * * Sign off status: CompletedVisit Status:?CHK (Check Out) true * Provider: Kurtis Bynum ([facility])MD Date: 12/08/2024 Generated for Printing/Faxing/eTransmitting on:?10/09/2025 10:43 AM EST History and Physical Notes * HPI (History of Present Illness) CategorySub-CategoryDetailNotesCategory NotesGeneral Daniela any issues still on valcyclovir - no issues Depression ScreeningPHQ-2 (2015 Edition)Little interest or pleasure in doing things?: Not at allFeeling down, depressed, or hopeless?: Not at allTotal Score: 0 Examination CategorySub-CategoryDetailNotesCategory NotesPhysical ExamGENERAL:well developed, well nourished, in no acute distress , well developed, well nourished, in no acute distressHEAD:normocephalic/atraumatic , normocephalic/atraumaticEYES:pupils equal, round and reactive to light, conjunctivae and sclerae normal , pupils equal, round and reactive to light, conjunctivae and sclerae normalEARS:no deformity or lesion of external ear, canals and TM appear normal bilaterally, TM's intact, not inflamed with normal light reflex, hearing grossly normal to conversational speech , no deformity or lesion of external ear, canals and TM appear normal bilaterally, TM's intact, not inflamed with normal light reflex, hearing grossly normal to conversational speechNOSE:no deformity, discharge, inflammation, or lesions , no deformity, discharge, inflammation, or lesionsMOUTH:mucous membranes moist, normal oropharynx and posterior pharynx without lesions or exudates, tonguenormal, dentition normal , mucous membranes moist, normal oropharynx and posterior pharynx without lesions or exudates, tongue normal, dentition normalNECK:neck supple, no masses or palpable cervical nodes, trachea midline, thyroid without nodules, masses, tenderness, or enlargement , neck supple, no masses or palpable cervical nodes, trachea midline, thyroid without nodules, masses, tenderness, or enlargementCHEST:no chest wall deformity, no chest wall tenderness , no chest wall deformity, no chest wall tendernessLUNGS:normal respiratory effort and clear to auscultation, no wheezes, rales, or rhonchi, good air exchange , normal respiratory effort and clear to auscultation, no wheezes, rales, or rhonchi, good air exchangeCARDIO:regular rate and rhythm, normal S1 and S2, nor murmur, rub, or gallop , regular rate and rhythm, normal S1 and S2, nor murmur, rub, or gallopPULSES:normal capillary refill , normal capillary refillABDOMEN:soft, non- distended, non-tender, no masses , soft, non-distended, non-tender, no masses RECTAL:MUSCULOSKELETAL:no deformity or scoliosis noted, normal range of motion, joints normal, no erythema, edema, effusion, or ecchymosis , no deformity or scoliosis noted, normal range of motion, joints normal, no erythema, edema, effusion, or ecchymosisEXTREMITY:no clubbing, cyanosis, edema, or deformity with normal ROM in both upper and lower bilateral extremities , no clubbing, cyanosis, edema, or deformity with normal ROM in both upper and lower bilateral extremitiesNEUROLOGIC:grossly normal , grossly normalSKIN:no rashes, ulcerations, or suspicious lesions , no rashes, ulcerations, or suspicious lesionsLYMPH NODES:no cervical adenopathy, nodes normal , no cervical adenopathy, nodes normalMENTAL STATUS:alert and oriented x3, normal mood and affect , alert and oriented x3, normal mood and affect
--- OUTSIDE RECORDS SUMMARY | 2025-10-08 14:23 | XMS_ITS ---
Author Organization [facility] in [place] Address [address] [place] [address] Care Team Providers Care Men'S Swim Coach Name Role Phone Walker Bynum Primary Care Provider REASON FOR VISIT lab results Problems Problem Type SNOMED Code ICD Code Onset Dates Problem Status W/U Status Risk Notes Problem Macrocytic anemia (12483489) Macrocytic a nemia (D53.9) Activeconfirmed Encounters Encounter Location Date Provider Diagnosis [facility] [address] [place] [address] 10/08/2025 Walker Bynum Macrocytic anemia D53.9 Assessments Encounter Date Diagnosis (ICD Code) Assessment Notes Treatment Notes Treatment Clinical Notes Section Notes 10/08/2025 Macrocytic anemia (ICD-10 - D53. 9) Plan Of Treatment Pending Test Test Name Order Date FOLATE 10/08/2025 VITAMIN B12 10/08/2025 Progress Notes * Maribell BECKFORDB:1965 ([age] yo F)Acc No.[id number]:10/08/2025 Patient:?Lynne BECKFORD :1965???Age:60 Y???Sex:FemalePhone:[phone] Address:[address] [place] [address], [address] [address] Subjective: * Chief Complaints: * L ab results * Medical History: * Surgical History: * Hospitalization/Major Diagno stic Procedure: * Medications: Objective: * Vitals: * Physical Examination: ??? Assessment: * Assessment: 1.?Macrocytic anemia - D53.9 (Primary)??? Plan: * Treatment: ?LAB: FOLATE ?LAB: VITAMIN B12 * Procedure Codes: * true * Date:?Generated for Printing/Faxing/eTransmitting on:?10/09/2025 10:43 AM EST
--- OUTSIDE RECORDS SUMMARY | 2025-10-09 10:44 | XMS_ITS | Clinical Summary ---
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
--- OUTSIDE RECORDS SUMMARY | 2025-10-09 10:44 | XMS_ITS | Patient Health Record ---
Author Organization [facility] in [place] Address [address] [place] [address] Care Team Providers Care Plate Maker Name Role Phone Walker Bynum Primary Care Provider Allergies No Known Allergies Results Component Value Reference Range Notes MM tomosynthesis screening B I Reviewed date:11/06/2024 08:32:40 PM Interpretation: Performing Lab: Notes/Report: Source Facility: [place] [address] Mammography Report Signed Patient: LYNNE BECKFORD MR#: [id number] : 1965 Acct:[id number] Age/Sex: 59 / F ADM Date: 11/06/24 Loc: MAMMO Attending Dr: Jaziel Bynum M.D. Ordering Physician: Jaziel Bynum M.D. Results: Date of Service: 11/06/24 Follow Up: Procedure(s): MM tomosynthesis screening BI Accession Number(s): [id number] cc: Jaziel yBnum M.D. Patient Name: LYNNE BECKFORD MR#: [id number] : 1965 Exam Date: 11/06/2024 Ordering Doctor: DR Jaziel Bynum . RADIOLOGY REPORT PROCEDURE: MM TOMOSYNTHESIS SCREENING BI COMPARISON: MM TOMOSYNTHESIS SCREENING BI, 11/05/2023. INDICATIONS: screening for malignant neoplasm of brest Calculator Name NCI Breast Cancer Risk Assessment Tool 5 Year Breast Cancer Risk 1.50% Lifetime Breast Cancer Risk 7.00% Personal Breast Cancer No Personal Ovarian Cancer No Treatments None Family Cancers Grandfather-maternal with colon cancer at age 70; Grandmother-paternal with breast cancer at age 74; Grandmother-maternal with lung cancer at age 74. LOCATION: [facility] BREAST COMPOSITION: The breasts are heterogeneously dense,which may obscure small masses. FINDINGS: DIAGNOSTIC CATEGORY 1--NEGATIVE. NO CHANGE FROM COMPARISON ASSESSMENT. Scattered benign-appearing calcifications are present. RIGHT BREAST: No significant suspicious finding. LEFT BREAST: No significant suspicious finding. RECOMMENDATIONS: ROUTINE MAMMOGRAM AND CLINICAL EVALUATION IN 12 MONTHS. PLEASE NOTE: A NORMAL MAMMOGRAM DOES NOT EXCLUDE THE POSSIBILITY OF BREAST CANCER. A CLINICALLY SUSPICIOUS PALPABLE LUMP SHOULD BE BIOPSIED. Dictated by: Herb Velasquez MD on 11/06/2024 at 08:55 Approved by: Herb Velasquez MD on 11/06/2024 at 09:03 Dictated By: Herb Velasquez M.D. Signed By: 11/06/24903 DD/ 2 TD/TT: Forging Press Lever Tender: VONNIE T3 Reviewed date:10/08/2025 07:26:00 PM Interpretation: Performing Lab: Notes/Report: [facility] , Free T3 2.46 2.18-3.98 pg/mL Performing Lab:see wilda - [facility] LBGLYCOHEMOGLOBIN A1C Reviewed date:10/08/2025 07:26:00 PM Interpretation: Performing Lab: Notes/Report: [facility] ,Glycohemoglobin A1C5.14.5-6.2 % ADA RECOMMENDED LIMIT 4.0 - 6.0 ADA THERAPEUTIC TARGET < 7.0 ACTION SUGGESTED > 7.0 Estimated Average Djhlmbw340Amaowxxjkc Lab:see noteML - [facility] LB IRON Reviewed date:10/08/2025 07:26:00 PM Interpretation: Performing Lab: Notes/Report: [facility] ,Ucia664.050.0-170.0 ug/dLPerforming Lab:see wilda - [facility] LB LIPID PROFILE Reviewed date:10/08/2025 07:26:00 PM Interpretation: Performing Lab: Notes/Report: [facility] ,Bssshstxfoqnj031<=150 mg/iEKmpchnnmgss568<=200 mg/dLHDL Ugrowvmiybq4693-70 mg/dL > or =60 mg/dl - LOW CARDIOVASCULAR RISK <40 mg/dl - HIGH CARDIOVASCULAR RISK LDL Cholesterol Wwynbyugmh613.0 <100 mg/dl OPTIMAL 100-129 mg/dl NEAR OR ABOVE OPTIMAL 130-159 mg/dl BORDERLINE HIGH 160-189 mg/dl HIGH >190 mg/dl VERY HIGH VLDL AVUWCOLDYHB09.8Chol HDL Ratio3.6 3.3 - 4.4 LOW RISK 4.4 - 7.1 AVERAGE RISK 7.1 - 11.0 MODERATE RISK >11.0 HIGH RISK Performing Lab:see note - [facility] LBPROF 14(COMP METB) Reviewed date:10/08/2025 07:26:00 PM Interpretation: Performing Lab: Notes/Report: [facility] ,Ocmzmn671840-787 mmol/LPotassium4.03.5-5.1 mmol/ROlfrbiic74720-485 mmol/LCarbon Lirbnmx44.321.0-32.0 mmol/LAnion Gap12.1Dxfwfvw9092-008 mg/dLBlood Urea Nitrogen 25.07.0-18.0 mg/dLCreatinine0.790.55-1.02 mg/dLEstimated GFR ( Mulu>60 >=60 mL/min/1.73m 2Estimated GFR (Non- Paola>60>=60 mL/min/1.73m 2BUN Creatinine Ratio31.1Yczfdaz1.98.5-10.1 mg/dLBilirubin Total0.40.2-1.0 mg/dL Aspartate Amino Tvwhwihrjfe4047-18 U/LAlanine Czzmjtjdnyghsnim0719-91 U/L Alkaline Yfxkpggnsag8363-282 U/LTotal Protein7.26.4-8.2 g/dLAlbumin Level4.13.4- 5.0 g/dLGlobulin3.1Albumin Globulin Ratio1.3Performing Lab:see note - [facility] LBT4 Reviewed date:10/08/2025 07:26:00 PM Interpretation: Performing Lab: Notes/Report: [facility] ,T4 Thyroxine6.804.80-13.90 ug/dLPerforming Lab:see note - [facility] LBTSH Reviewed date:10/08/2025 07:26:00 PM Interpretation: Performing Lab: Notes/Report: [facility] ,Thyroid Stimulating Hormone1.9450.358-3.740 uIU/mLPerforming Lab:see noteML - [facility] LBCBC AUTO DIFF Reviewed date:10/08/2025 07:26:00 PM Interpretation: Performing Lab: Notes/Report: [facility] ,White Blood Count4.74.0-11.0 10 3/uLRed Blood Count3.994.20-5.40 10 6/uL Ljlnpyjnid84.912.0-16.0 g/eRMffnydrnqj34.036.0-48.0 %Mean Corpuscular Volume 102.881.0-99.0 fLMean Corpuscular Bqztmevqtb45.826.7-34.0 pgMean Corpuscular HGB Conc33.929.9-35.2 g/dLRed Cell Distribution Width11.111.0-15.0 %Platelet Count 394276-055 10 3/uLMean Platelet Wffivx53.09.5-13.5 fLNeutrophils Percent Auto 49.043.0-75.0 %Lymphocytes Percent Auto38.120.5-60.0 %Monocytes Percent Auto8.8 1.7-12.0 %Eosinophils Percent Auto2.80.9-7.0 %Basophils Percent Auto1.30.2-2.0 % Immature Granulocytes Pct Auto0.00.0-0.5 %Neutrophils Absolute Auto2.31.4-6.5 10 3/uLLymphocytes Absolute Auto1.81.2-3.8 10 3/uLMonocytes Absolute Auto0.40.3-0.8 10 3/uLEosinophils Absolute Auto0.10.0-0.7 10 3/uLBasophils Absolute Auto0.10.0- 0.1 10 3/uLImmature Granulocytes Abs Auto0.000.00-0.03 10 3/uLPerforming Lab:see noteML - [facility] LB Reason For Referral No Information Medications Medication SIG (Take, Route, Frequency, Duration) Notes Start Date End Date Status valACYclovir HCl 1 GM TAKE 1 TABLET BY MOUTH ONC E DAILY; Duration: 90 days Active Social History Tobacco Use: Social History Observation Description Date Details (start date - stop date) Never Smoker NA - NA Tobacco Use/Smoking Question Answer Notes Patient is a nonsmoker Alcohol Screen (Audit-C) Question Answer Notes Did you have a drink containing alcohol in the p ast year? Yes How often did you have 6 or more drinks on one occasion in the past year?Never (0 point)How many drinks did you have on a typical day when you were drinking in the past year?3 or 4 drinks (1 point)How often did you have a drink containing alcohol in the past year?Weekly (3 points)Agbxkx3XddvacapxgyhyqTsngujfpXVPIV-P (Standard) Question Answer Notes Did you have a drink containing alcohol in the p ast year? 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) ActiveconfirmedProblemWell adult (668230838)Well adult (Z00.00)Activeconfirmed ProblemMacrocytic anemia (81594993)Macrocytic anemia (D53.9)Activeconfirmed Vital Signs Blood pressure diastolic 80 mm Hg 10/08/2025 Xexxhx61 in10/08/2025lood pressure qwkafiaq377 mm Hg10/08/20256274Kcwlho931.8 lbs 10/08/2025BMI22.81 kg/m210/08/2025 Encounters Encounter Location Date Provider Diagnosis [facility] [address] [place] [address] 10/08/2025 Walker Bynum Well adult Z00.0 0 [facility] [address] [place] [address] 11/06/2024 Walker Diggsy [facility] [place] [address] 10/08/2025Doug HoyMacrocytic anemia D53.9 Assessments Encounter Date Diagnosis (ICD Code) Assessment Notes Treatment Notes Treatment Clinical Notes Section Notes 10/08/2025 Well adult (ICD-10 - Z00.00) 10/08/2025Macrocytic anemia (ICD-10 - D53.9) Plan Of Treatment Pending Test Test Name Order Date CMP (COMPLETE METABOLIC PANEL) 10/19/202 3 CMP (COMPLETE METABOLIC PANEL) 4 HEMOGLOBIN A1C (GLYCO) 10/08/2025 HEMOGLOBIN A1C (GLYCO) 09/02/2023 HEMOGLOBIN A1C (GLYCO) 10/05/2024 IRON, TOTAL 10/08/2025 LIPID PANEL (CHOL/TRIG/HDL/LDL) 10/08/20 25 LIPID PANEL (CHOL/TRIG/HDL/LDL) 10/05/20 24 LIPID PANEL (CHOL/TRIG/HDL/LDL) 09/02/20 23 CBC WITH DIFF 09/02/2023 CBC WITH DIFF 10/05/2024 FOLATE 10/08/2025 VITAMIN B12 10/08/2025 VITAMIN B12 09/06/2023 THYROID PANEL (T4/TSH/FREE T3) 3 THYROID PANEL (T4/TSH/FREE T3) 4 THYROID PANEL (T4/TSH/FREE T3) 5 MG MAMM SCREEN 3D ALFA CAD 10/25/2023 MM screening mammo BI 10/05/2024 MM screening mammo BI 10/08/2025 CMP (COMP MET WILKINS) w/eGFR CKD-EPI 2024 CBC WITH DIFF 10/08/2025 Insurance Providers Payer Name Payer Address Payer Phone Subscriber Number Group Number Insured Name Patient Relationship to Insured Coverage Start Date Coverage End Date [employer] [address] [place] [address] [id number] Qian Beckford - patient is the insured Medical (General) History Medical History History ICD Code Colon polyp K63.5 Constipation K59.00 Osteoporosis M81.0 Hypercholesteremia E78.00 Surgical History Surgery Date(Month/Year) Hysterectomy Tonsillectomy
--- OUTSIDE RECORDS SUMMARY | 2025-10-09 10:56 | XMS_ITS | CCD ---
Author Organization [facility] Care Team Providers Care Wind Turbine Technician Name Role Phone HUSEYIN, DR CURIEL Admitting [...] DR PEPE Cade Consulting Unavailable KARASIK, DR DIZE Admitting Unavailable KARASIK, DR DIEZ Attending Unavailable HOY, DR CURIEL Primary Care Unavailable KARASIK, DR DIEZ Consulting Unavailable Unavailable Primary Care Provider Unavailabl e Problems Active Problems Problem ClassificationProblemDateDocumented DateEpisodic/ChronicOsteoporosis (1 source)Age-related osteoporosis without current pathological fracture; Translations: [AGE-REL OSTEOPOR W/OCURR PATH FX]Onset: 12-28-2948PruobenJanto screening for suspected conditions (not mental disorders or infectious disease) (8 sources)Encounter for screening mammogram for malignant neoplasm of breast; Translations: [Encounter for screening for malignant neoplasm of cervix]Onset: 37-55-1330HkmxjqweAbpavjiw codes; unclassified (1 source)Family history of malignant neoplasm of digestive organs; Translations: [FAM HX MALIG NEOPLASM DIGESTIV ORGN]Onset: 81-92-4949Yyuhkvqo Residual codes; unclassified (1 source)Family history of malignant neoplasm of breast; Translations: [FAMILY HX MALIG NEOPLASM OF BREAST]Onset: 79-47-6356IxypxpmgKivmwsev codes; unclassified (1 source)Family history of malignant neoplasm of trachea, bronchus and lung; Translations: [FAM HX MALIG NEOPLSM TRACH BRON LNG]Onset: 19-40-4304Bgfngtmy Past or Other Problems Problem ClassificationProblemDateDocumented DateEpisodic/ChronicImmunizations and screening for infectious disease (1 source)Encounter for screening for human papillomavirus (HPV); Translations: [ENC SCREENING HUMAN PAPILLOMAVIRUS]Onset: 63-57-1698WjogoupaLaddqtsk codes; unclassified (4 sources)Asymptomatic menopausal state; Translations: [ASYMPTOMATIC MENOPAUSAL STATE]Onset: 93-94-4028Imvqbrsn Results Test NameValueInterpretationReference RangeFacilityMM TOMOSYNTHESIS SCREENING BI on 93-70-7164[place] [address] Mammography Report Signed Patient: GIOVANNY BECKFORD MR#: [id number] : 1965 Acct:[id number] Age/Sex: 58 / F ADM Date: 11/05/23 Loc: MAMMO Attending Dr: Baldo Bravo D.O. Ordering Physician: Baldo Bravo D.O. Results: Date of Service: 11/05/23 Follow Up: Procedure(s): MM tomosynthesis screening BI Accession Number(s): [id number] cc: Baldo Bravo D.O.; Moisés Bynum M.D. Patient Name: GIOVANNY BECKFORD MR#: [id number] : 1965 Exam Date: 11/05/2023 Ordering Doctor: [...] lung cancer at age 72. LOCATION: [facility] BREAST COMPOSITION: Heterogeneously dense,which may obscure small [...] Signed By: 11/05/23 1435 DD/ 34 TD/TT: Analyst Food And Beverage:TBHRadiology, Radiologist, MD - 11/05/2023 [place] [address] Mammography Report Signed Patient: GIOVANNY BECKFORD MR#: [id number] : 1965 Acct:[id number] Age/Sex: 58 / F ADM Date: 11/05/23 Loc: MAMMO Attending Dr: Baldo Bravo D.O. Ordering Physician: Baldo Bravo D.O. Results: Date of Service: 11/05/23 Follow Up: Procedure(s): MM tomosynthesis screening BI Accession Number(s): [id number] cc: Baldo Bravo D.O.; Moisés Bynum M.D. Patient Name: GIOVANNY BECKFORD MR#: [id number] : 1965 Exam Date: 11/05/2023 Ordering Doctor: [...] lung cancer at age 72. LOCATION: [facility] BREAST COMPOSITION: Heterogeneously dense,which may obscure small [...] M.D. Signed By: 11/05/235 DD/ 34 TD/TT: Analyst Food And Beverage: [facility] SystemRadiology Study observation (narrative)[facility] TOMOSYNTHESIS SCREENING BIOrdered By: Radiologist Radiology on 61-97-4414[facility] Work Phone: MG MAMM SCREEN 3D ANTHONY CADon 81-57-5863LS MAMM SCREEN 3D ANTHONY CADPatient: GIOVANNY BECKFORD Exam Date: 11/04/2022 : 1965 Gender:F Ordering : DR MOISÉS BYNUM . Admission #: [id number] Family : Order #: [id number] CLICK HERE TO VIEW EXAM RADIOLOGY REPORT [...] lung cancer at age 72. LOCATION: [facility] BREAST COMPOSITION: Heterogeneously dense,which may obscure small [...] by: Pepe Sterling M.D. on 11/04/2022 at 10:42[facility] HospitalCB AUTO DIFFon 71-43-8076CTWS #0.1 103/ulNormal0.0-0.1[facility] NorthComment on above:Performed By: #### CBC #### [facility] [address] [address] [address] Suzie LundbergBasophils/100 WBC (Bld)1.3 %Normal0.2-2.0[facility] Comment on above:Performed By: #### CBC #### [facility] [address] [address] [address] Suzie Mosley #0.2 103/ulNormal0.0-0.7ThChillicothe VA Medical CenterComment on above: Performed By: #### CBC #### [facility] [address] [address] [address] Suzie Maierosinophils/100 WBC (Bld)3.1 %Normal0.9-7.0[facility] Comment on above:Performed By: #### CBC #### [facility] [address] [address] [address] Suzie Maierrythrocyte distribution width (RBC) [Ratio]12.1 %Xbcmtc59.0-15.0 [facility] CenterComment on above:Performed By: #### CBC #### [facility] [address] [place] [address] Dr. Suzie LundbergHematocrit (Bld) [Volume fraction]38.7 %Hdhaas63.0-48.0The [facility] CenterComment on above:Performed By: #### CBC #### [facility] [address] [place] [address] Dr. Suzie LundbergHemoglobin (Bld) [Mass/Vol]12.9 g/hHQkkndj66.0-16.0The [facility] CenterComment on above:Performed By: #### CBC #### [facility] [address] [place] [address] Dr. Suzie Gabriel #0.01 10e3/ulNormal0.00-0.03The [facility] CenterComment on above:Performed By: #### CBC #### [facility] [address] [place] [address] Dr. Suzie Gabriel %0.2 %Normal0.0-0.5The [facility] CenterComment on above: Performed By: #### CBC #### [facility] [address] [place] [address] Dr. Suzie Valenzuela #1.8 103/ulNormal1.2-3.8The [facility] CenterComaspirus keweenaw hospital on above:Performed By: #### CBC #### [facility] [address] [place] [address] Dr. Suzie Duboismphocytes/100 WBC (Bld)32.8 %Fiasdb88.5-60.0The [facility] CenterComment on above:Performed By: #### CBC #### [facility] [address] [place] [address] Dr. Suzie PradoUAL DIFF REQNONormalThe [facility] CenterComment on above: Performed By: #### CBC #### [facility] [address] [place] [address] Dr. Suzie Foley (RBC) [Entitic mass]33.8 ivBshheg51.7-34.0The [facility] CenterComment on above:Performed By: #### CBC #### [facility] [address] [place] [address] Dr. Suzie Wheatley (RBC) [Mass/Vol]33.3 g/mFLjpgsj46.9-35.2The [facility] CenterComment on above:Performed By: #### CBC #### [facility] [address] [place] [address] Dr. Suzie Wheatley (RBC) [Entitic vol]101.3 fLCritically high81.0-99.0The [facility] CenterComment on above:Performed By: #### CBC #### [facility] [address] [place] [address] Dr. Suzie Sue #0.5 103/ulNormal0.3-0.8The [facility] CenterComment on above:Performed By: #### CBC #### [facility] [address] [place] [address] Dr. Suzie Torresocytes/100 WBC (Bld)9.4 %Normal1.7-12.0The [facility] Comment on above:Performed By: #### CBC #### [facility] [address] [place] [address] Dr. Suzie Shaw #2.9 103/ulNormal1.4-6.5The [facility] CenterComment on above:Performed By: #### CBC #### [facility] [address] [place] [address] Dr. Suzie Hanksophils/100 WBC (Bld)53.2 %Exywcw17.0-75.0The [facility] CenterComment on above:Performed By: #### CBC #### [facility] [address] [place] [address] Dr. Suzie Nicole mean volume (Bld) [Entitic vol]10.0 fLNormal9.5-13.5The [facility] CenterComment on above:Performed By: #### CBC #### [facility] [address] [place] [address] Dr. Suzie McbrideT234 103/baFsnsmy533-722Bwv [facility] on above: Performed By: #### CBC #### [facility] [address] [place] [address] Dr. Suzie LundbergRBC3.82 106/ulCritically low4.20-5.40The [facility] on above:Performed By: #### CBC #### [facility] [address] [place] [address] Dr. Suzie LundbergWBC5.4 103/ulNormal4.0-11.0The [facility] on above: Performed By: #### CBC #### [facility] [address] [place] [address] Dr. Suzie LundbergGLYCOHEMOGLOBIN A1Con 97-36-6198TKG RECOMMENDATIONSEE BELOWKettering Health – Soin Medical CenterComaspirus keweenaw hospital on above:Result Comment: ADA RECOMMENDED LIMIT 4.0 - 6.0 ADA THERAPEUTIC TARGET < 7.0 ACTION SUGGESTED > 7.0Performed By: #### A1C #### [facility] [address] [place] [address] Dr. Suzie LundbergGlucose [Mass/Vol]103 mg/dLNoBarnesville Hospital on above:Performed By: #### A1C #### [facility] [address] [place] [address] Dr. Suzie LundbergHbA1c (Bld) [Mass fraction]5.2 %Normal4.5-6.2The [facility] on above:Performed By: #### A1C #### [facility] [address] [place] [address] Dr. Suzie LundbergLIPID PROFILEon 18-12-6793PBKX-HDL RATIO NORMSEE Twin City HospitalComaspirus keweenaw hospital on above:Result Comment: 3.3 - 4.4 LOW RISK 4.4 - 7.1 AVERAGE RISK 7.1 - 11.0 MODERATE RISK >11.0 HIGH RISKPerformed By: #### LIPID, CMP, TSH #### [facility] [address] [place] [address] Dr. Suzie LundbergCholesterol [Mass/Vol]204 mg/dLCritically high<=200The [facility] CenterComment on above:Performed By: #### LIPID, CMP, TSH #### [facility] [address] [place] [address] Dr. Suzie Pettyesterol in HDL [Mass/Vol]73 mg/dLCritically ikgv95-36Ppf [facility] CenterComment on above:Performed By: #### LIPID, CMP, TSH #### [facility] [address] [address] [address] Suzie Pettyesterol in LDL [Mass/Vol]124.6 mg/dLNoProMedica Memorial HospitalComment on above:Performed By: #### LIPID, CMP, TSH #### [facility] [address] [place] [address] Dr. Suzie Weinstein.total/Cholesterol in HDL [Mass ratio]2.8 {ratio} NormalThe [facility] CenterComment on above:Performed By: #### LIPID, CMP, TSH #### [facility] [address] [place] [address] Dr. Suzie Childs NORMAL> or = 60 mg/dl - LOW CARDIOVASCULAR RISK <40 mg/dl - HIGH CARDIOVASCULAR RISKMercy Health St. Joseph Warren HospitalComment on above:Performed By: #### LIPID, CMP, TSH #### [facility] [address] [place] [address] Dr. Suzie Silva CALC NORMALSEE BELOWNoProMedica Memorial HospitalComment on above:Result Comment: <100 mg/dl OPTIMAL 100 - 129 mg/dl NEAR OR ABOVE OPTIMAL 130 - 159 mg/dl BORDERLINE HIGH 160 - 189 mg/dl HIGH >190 mg/dl VERY HIGH Performed By: #### LIPID, CMP, TSH #### [facility] [address] [place] [address] Dr. Suzie LundbergTriglyceride [Mass/Vol]32 mg/dLNormal<=150The [facility] Comment on above:Performed By: #### LIPID, CMP, TSH #### [facility] [address] [place] [address] Dr. Yilan ChangVLDL CALC6.4 mg/dLNormalThe [facility] CenterComment on above: Performed By: #### LIPID, CMP, TSH #### [facility] [address] [address] [address] Suzie Deleon 14(COMP METB)on 91-06-8013Qdbvtui [Mass/Vol]3.9 g/dLNormal 3.4-5.0The [facility] CenterComment on above:Performed By: #### LIPID, CMP, TSH #### [facility] [address] [place] [address] Dr. Suzie LundbergAlbumin/Globulin [Mass ratio]1.4 {ratio}NormalThe [facility] CenterComment on above:Performed By: #### LIPID, CMP, TSH #### [facility] [address] [place] [address] Dr. Suzie Mitchell [Catalytic activity/Vol]80 U/YAzvixk57-308Sms [facility] CenterComment on above:Performed By: #### LIPID, CMP, TSH #### [facility] [address] [place] [address] Dr. Suzie Campo [Catalytic activity/Vol]20 U/PZmewaz62-39Ufd [facility] CenterComment on above:Performed By: #### LIPID, CMP, TSH #### [facility] [address] [place] [address] Dr. Suzie Mace gap [Moles/Vol]14.4 mmol/LNormalThe [facility] Comment on above:Performed By: #### LIPID, CMP, TSH #### [facility] [address] [place] [address] Dr. Suzie Lester [Catalytic activity/Vol]14 U/LCritically rmj60-56Fwb [facility] CenterComment on above:Performed By: #### LIPID, CMP, TSH #### [facility] [address] [place] [address] Dr. Suzie LundbergBilirubin [Mass/Vol]0.2 mg/dLNormal0.2-1.0The [facility] Comment on above:Performed By: #### LIPID, CMP, TSH #### [facility] [address] [address] [address] Suzie LundbergCalcium [Mass/Vol]8.6 mg/dLNormal8.5-10.1The [facility] Comment on above:Performed By: #### LIPID, CMP, TSH #### [facility] [address] [address] [address] Suzie LundbergChloride [Moles/Vol]105 mmol/NVinqji42-543Gre [facility] Comment on above:Performed By: #### LIPID, CMP, TSH #### [facility] [address] [address] [address] Suzie LundbergCO2 [Moles/Vol]28.3 mmol/UXwpidw27.0-32.0The [facility] Comment on above:Performed By: #### LIPID, CMP, TSH #### [facility] [address] [place] [address] Dr. Suzie LundbegrCreatinine [Mass/Vol]0.70 mg/dLNormal0.55-1.02The [facility] CenterComment on above:Performed By: #### LIPID, CMP, TSH #### [facility] [address] [address] [address] Suzie MaierGFR-AF NIGERIEN>60Normal>=60The [facility] CenterComment on above:Performed By: #### LIPID, CMP, TSH #### [facility] [address] [address] [address] Suzie Troy-NON AF NIGERIEN>60Normal>=60The [facility] CenterComment on above:Performed By: #### LIPID, CMP, TSH #### [facility] [address] [address] [address] Suzie LundbergGlobulin (S) [Mass/Vol]2.7 g/dLNormalThe [facility] CenterComment on above:Performed By: #### LIPID, CMP, TSH #### [facility] [address] [place] [address] Dr. Suzie LundbergGlucose [Mass/Vol]100 mg/bPSsmppe68-872Dsk [facility] Comment on above:Performed By: #### LIPID, CMP, TSH #### [facility] [address] [place] [address] Dr. Suzie LundbergPotassium [Moles/Vol]4.7 mmol/LNormal3.5-5.1The [facility] Comment on above:Performed By: #### LIPID, CMP, TSH #### [facility] [address] [place] [address] Dr. Suzie LundbergProtein [Mass/Vol]6.6 g/dLNormal6.4-8.2The [facility] Comment on above:Performed By: #### LIPID, CMP, TSH #### [facility] [address] [place] [address] Dr. Suzie LundbergSodium [Moles/Vol]143 mmol/ANuowdj143-290Rzs [facility] Comment on above:Performed By: #### LIPID, CMP, TSH #### [facility] [address] [place] [address] Dr. Suzie LundbergUrea nitrogen [Mass/Vol]11.0 mg/dLNormal7.0-18.0[facility] NorthComment on above:Performed By: #### LIPID, CMP, TSH #### [facility] [address] [place] [address] Dr. Suzie Kohli nitrogen/Creatinine [Mass ratio]15.7 mg/mgNormalThe [facility] CenterComment on above:Performed By: #### LIPID, CMP, TSH #### [facility] [address] [place] [address] Dr. Suzie Johnson 14-37-3213MCK5.421 uIU/mLNormal0.358-3.740[facility] NorthComment on above:Performed By: #### LIPID, CMP, TSH #### [facility] [address] [place] [address] Dr. Suzie Lalnos DEXA BONE DENSITYon 61-37-9050LE DEXA BONE DENSITYEXAMINATION: XR DEXA BONE DENSITY, [...] Electronically authenticated by: PEPE STERLING Date: 2022-06-03 20:18[facility] ACOG PANEL 2: 30 to 63on 01-21-2022..NormalThe [facility] CenterComment on above:Result Comment: Performed at: WBPerformed By: #### [id number] #### [facility] [address] [place] [address] Dr. Suzie Dillard Gdln ACOG Hivcbnf52-88GttiouJxoProMedica Memorial HospitalComment on above:Performed By: #### [id number] #### [facility] [address] [place] [address] Dr. Suzie LundbergDIAGNOSIS:CommentNoBarnesville Hospital on above: Result Comment: NEGATIVE FOR INTRAEPITHELIAL LESION OR MALIGNANCY. FUNGAL ORGANISMS MORPHOLOGICALLY CONSISTENT WITH MARLENI SPECIES ARE PRESENT. CELLULAR CHANGES ASSOCIATED WITH INFLAMMATION ARE PRESENT. Performed at: WBPerformed By: #### [id number] #### [facility] [address] [place] [address] Dr. Suzie LundbergHPV AptimaNegativeNormalNegativeLakeHealth Beachwood Medical Center on above:Result Comment: This nucleic acid amplification test detects fourteen high-risk HPV types (16,18,31,33,35,39,45,51,52,56,58,59,66,68) without differentiation. Performed at: =GPerformed By: #### [id number] #### [facility] [address] [place] [address] Dr. Suzie LundbergMethodology:CommentNoBarnesville Hospital on above: Result Comment: This liquid based ThinPrep(R) pap test was screened with the use of an image guided system. Performed at: Performed By: #### [id number] #### [address] [address] [address] Suzie LundbergNote:CommentWilson Health on above:Result Comment: The Pap smear is a screening test designed to aid in the detection of premalignant and malignant conditions of the uterine cervix. It is not a diagnostic procedure and should not be used as the sole means of detecting cervical cancer. Both false-positive and false-negative reports do occur. . Performed at: WBPerformed By: #### [id number] #### [address] [address] Dr[address] Suzie LundbergPerformed by:CommentWilson Health on above: Result Comment: Rene Hernandez, Seafood Specialist (ASCP) Performed at: WBPerformed By: #### [id number] #### [address] [address] [address] Suzie LundbergSpecimen adequacy:CommentWilson Health on above:Result Comment: Satisfactory for evaluation. No endocervical cells are present. This is consistent with a history of hysterectomy. Performed at: WBPerformed By: #### [id number] #### [address] [address] [address] Suzie LundbergCOVID-19 Antigenon 26-18-6042DFOCJ-19 AntigenHealthcare Worker?: N Andree Reference Andree Reference [...] its performance Andree Disclaimer characteristic determined by [employer]. and Andree Disclaimer validated at [facility] [...] is terminated or revoked sooner. PERFORMED BY: [place] [address] PATHOLOGIST BOX CLOSING MACHINE OPERATOR GENNA CARRERA M.D.NormalClinton Memorial HospitalComment on above: Performed By: #### COVID-19 ANDREE, SOFIANEG #### [facility] [address] [place] [address] USASofia Ag Negativeon 33-24-8359Ukajn Ag NegativeNegative NormalNegativeClinton Memorial HospitalComment on above:Result Comment: This is a duplicate Andree SARS Antigen (EDIE) result to be used for statistical tracking purpose only. PERFORMED BY: [address] [id number] PATHOLOGIST BOX CLOSING MACHINE OPERATOR GENNA CARRERA M.D.Performed By: #### COVID-19 ANDREE, SOFIANEG #### [facility] [address] [place], [place] [address] [place] Encounters Encounter DateEncounter TypeCare ProviderFacilityStart: 11-05-2023 End: 46-18-4208Tvljnamqq Result EncounterCorey Shelly DO Work Phone: noms External Department UnsolicitedStart: 11-05-2023 End: 25-31-9941Ocdgmewgi Result EncounterCorey Shelly DO Work Phone: noms External Department UnsolicitedStart: 11-04-2022 End: 70-26-0044sunkykwdntNO MOISÉS HOYFacility:W2Cgtvq: 09-10-2022 End: 10-83-9778tnguejmrqdUM MOISÉS HOYFacility:D5Jstsb: 23-93-7105Fwsxblbwx for general adult medical examination without abnormal findingsDR MOISÉS Mccullough [facility] Hospitaltart: 07-23-2022 End: 50-90-9933xbpedjqrjpHD MOISÉS HOYFacility:A5Qumft: 07-23-2022 End: 49-52-0613Ralmxkepq for general adult medical examination without abnormal findingsDR MOISÉS BYNUMFacility:Z7Ponny: 06-03-2022 End: 15-33-2837vhajpftgttBC RG WHITEFacility:I9Syqwc: 01-15-2022 End: 64-91-2015kfqlobghqnVS RG WHITEFacility:H1 Procedures DateProcedureProcedure DetailPerforming ClinicianStart: 15-96-9277LF TOMOSYNTHESIS SCREENING Raul Bravo DO Work Phone: Payers DatePayer CategoryPayerPolicy [id number]-zrs33883393370-72-3831Qzerqsc [id number] Social History DateTypeDetailFacilityTobacco smoking status NHISTobacco smoking consumption unknownNOMS HealthcareStart: 89-18-6233Jqq assigned at birthNot on fileNOMS HealthcareStart: 82-48-4259EjnSggwxnGQWZ HealthcareGender identityNot on file [facility] Summary Purpose Family History No Family History Records FoundNo Family History Records Found Advance Directives No Advanced Directives Records FoundNo Advanced Directives Records Found Additional Source Comments INFORMATION SOURCE (unrecogn ized section and content) DATE CREATED AUTHOR 02/02/2022 [facility] DATE CREATED AUTHOR AUTHOR'S ORGANIZ ATION 11/11/2022 [facility] FOR RECORDS PERTAINING TO PATIENTS [...] BE BASED ON THE PRIMARY CLINICAL RECORDS. [facility] [email or web address], [facility]. provides no warranty or guarantee of the accuracy or completeness of information in this document.
[2025-10-09 12:18] LABS: Folate 32.40 ng/mL (8.60-58.90)
[2025-10-10 03:08] LABS: Vitamin B12 665 pg/mL (232-1245)
== END 2025-10-09 10:40 | disposition home or self-care (01) ==
LOC: LAB 10:40
PROVIDERS: PCP Family Medicine; Visit Provider Family Medicine
DX: D53.9 Nutritional anemia, unspecified (principal)
CPT/HCPCS: 36415; 82607; 82746

== ENCOUNTER 2025-11-07 07:25 | Outpatient (OUT) | payer BC, SELFPAY ==
--- OUTSIDE RECORDS SUMMARY | 2025-11-07 07:28 | XMS_ITS | Patient Health Record ---
Author Organization [facility] in [place] Address [address] [place] [address] Care Team Providers Care International Trade Manager Name Role Phone Walker Bynum Primary Care Provider Allergies No Known Allergies Results Component Value Reference Range Notes FREE T3 Reviewed date:10/08/2025 07:26:00 PM Interpretation: Performing Lab: Notes/Report: [facility] , Free T3 2.46 2.18-3.98 pg/mL Performing Lab:see noteML - [facility] LBIRON Reviewed date:10/08/2025 07:26:00 PM Interpretation: Performing Lab: Notes/Report: [facility] ,Romr818.050.0-170.0 ug/dLPerforming Lab:see noteML - [facility] LB LIPID PROFILE Reviewed date:10/08/2025 07:26:00 PM Interpretation: Performing Lab: Notes/Report: [facility] ,Iqrftywzthtjy272<=150 mg/uUDmvrekulsvn526<=200 mg/dLHDL Sszinxmcgrd0656-16 mg/dL > or =60 mg/dl - LOW CARDIOVASCULAR RISK <40 mg/dl - HIGH CARDIOVASCULAR RISK LDL Cholesterol Efhecjtilp799.0 130-159 mg/dl BORDERLINE HIGH <100 mg/dl OPTIMAL 100-129 mg/dl NEAR OR ABOVE OPTIMAL 160-189 mg/dl HIGH >190 mg/dl VERY HIGH VLDL FSFKVXTORHE07.8Chol HDL Ratio3.6 4.4 - 7.1 AVERAGE RISK 3.3 - 4.4 LOW RISK 7.1 - 11.0 MODERATE RISK >11.0 HIGH RISK Performing Lab:see noteML - [facility] LBPROF 14(COMP METB) Reviewed date:10/08/2025 07:26:00 PM Interpretation: Performing Lab: Notes/Report: [facility] ,Wamald749204-005 mmol/LPotassium4.03.5-5.1 mmol/BSvcvxyow30211-746 mmol/LCarbon Eefmtpt29.321.0-32.0 mmol/LAnion Gap12.1Mlqzxbp0005-116 mg/dLBlood Urea Nitrogen 25.07.0-18.0 mg/dLCreatinine0.790.55-1.02 mg/dLEstimated GFR ( Mulu>60 >=60 mL/min/1.73m 2Estimated GFR (Non- Paola>60>=60 mL/min/1.73m 2BUN Creatinine Ratio31.2Kxawrhd7.98.5-10.1 mg/dLBilirubin Total0.40.2-1.0 mg/dL Aspartate Amino Cltveminrrp7722-16 U/LAlanine Teukweklsaiopkue2685-48 U/L Alkaline Ygubdkkwyeo7904-190 U/LTotal Protein7.26.4-8.2 g/dLAlbumin Level4.13.4- 5.0 g/dLGlobulin3.1Albumin Globulin Ratio1.3Performing Lab:see noteML - [facility] LBT4 Reviewed date:10/08/2025 07:26:00 PM Interpretation: Performing Lab: Notes/Report: [facility] ,T4 Thyroxine6.804.80-13.90 ug/dLPerforming Lab:see noteML - [facility] LBTSH Reviewed date:10/08/2025 07:26:00 PM Interpretation: Performing Lab: Notes/Report: [facility] ,Thyroid Stimulating Hormone1.9450.358-3.740 uIU/mLPerforming Lab:see note - [facility] LBVitamin B12 Reviewed date:10/10/2025 12:50:54 PM Interpretation: Performing Lab: Notes/Report: [facility] ,Vitamin R76165518-8247 pg/mL Meteorology Faculty Member: Nhan Polo PhD, Phone: [phone] [address] [place] [address], [place] [id number] [facility]formed [facility]: [facility] Performing Lab:see noteLC - [facility] LBGLYCOHEMOGLOBIN A1C Reviewed date:10/08/2025 07:26:00 PM Interpretation: Performing Lab: Notes/Report: [facility] ,Glycohemoglobin A1C5.14.5-6.2 % ACTION SUGGESTED ADA RECOMMENDED LIMIT 4.0 - 6.0 > 7.0 ADA THERAPEUTIC TARGET < 7.0 Estimated Average Osahncw035Bvwikffkxt Lab:see noteML - [facility] LB CBC AUTO DIFF Reviewed date:10/08/2025 07:26:00 PM Interpretation: Performing Lab: Notes/Report: [facility] ,White Blood Count4.74.0-11.0 10 3/uLRed Blood Count3.994.20-5.40 10 6/uL Icnhjezesq04.912.0-16.0 g/yCYrucgvfkrp87.036.0-48.0 %Mean Corpuscular Volume 102.881.0-99.0 fLMean Corpuscular Mreikbzicq80.826.7-34.0 pgMean Corpuscular HGB Conc33.929.9-35.2 g/dLRed Cell Distribution Width11.111.0-15.0 %Platelet Count 423072-298 10 3/uLMean Platelet Wwdbys77.09.5-13.5 fLNeutrophils Percent Auto 49.043.0-75.0 %Lymphocytes Percent Auto38.120.5-60.0 %Monocytes Percent Auto8.8 1.7-12.0 %Eosinophils Percent Auto2.80.9-7.0 %Basophils Percent Auto1.30.2-2.0 % Immature Granulocytes Pct Auto0.00.0-0.5 %Neutrophils Absolute Auto2.31.4-6.5 10 3/uLLymphocytes Absolute Auto1.81.2-3.8 10 3/uLMonocytes Absolute Auto0.40.3-0.8 10 3/uLEosinophils Absolute Auto0.10.0-0.7 10 3/uLBasophils Absolute Auto0.10.0- 0.1 10 3/uLImmature Granulocytes Abs Auto0.000.00-0.03 10 3/uLPerforming Lab:see noteML - [facility] LBFOLATE Reviewed date:10/09/2025 04:21:17 PM Interpretation: Performing Lab: Notes/Report: [facility] ,Dngduz23.408.60-58.90 ng/mLPerforming Lab:see noteML - [facility] LB Reason For Referral No Information Medications Medication SIG (Take, Route, Frequency, Duration) Notes Start Date End Date Status valACYclovir HCl 1 GM TAKE 1 TABLET BY MOUTH ONC E DAILY; Duration: 90 days Active Immunizations Vaccine Route Administration Date Status Comme nts Flu, (78870) -historic- Whole Unknown 08/03/2025 Admini stered Flu, Flucelvax (52521) 6 mos and older, single-dose syringe (0677-1562)Unknown [id number]-ZGG-7 (COVID 19 Moderna - Booster 0.25mL)Unknown 11/13/20200785VqtcejojmarkZYOB-GKF-6 (COVID 19 Moderna - Booster 0.25mL)Unknown [id number]-NFN-6 (COVID 19 Moderna - Booster 0.25mL)Unknown [id number]-HPI-8 (COVID 19 Moderna - Booster 0.25mL)Unknown 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) ActiveconfirmedProblemWell adult (293482245)Well adult (Z00.00)Activeconfirmed ProblemMacrocytic anemia (25152830)Macrocytic anemia (D53.9)Activeconfirmed Vital Signs Blood pressure diastolic 80 mm Hg 10/08/2025 Cocxgt76 in10/08/2025lood pressure drcakkzu311 mm Hg10/08/20257591Itqwuj952.8 lbs 10/08/2025BMI22.81 kg/m210/08/2025 Encounters Encounter Location Date Provider Diagnosis [facility] [address] [place] [address] 10/08/2025 Walker Hoy Well adult Z00.00 [facility] [address] [place] [address] 10/08/2025 Walker Hoy Macrocytic anemia D53.9 Assessments Encounter Date Diagnosis (ICD Code) Assessment Notes Treatment Notes Treatment Clinical Notes Section Notes 10/08/2025 Well adult (ICD-10 - Z00.00) 10/08/2025Macrocytic anemia (ICD-10 - D53.9) Plan Of Treatment Pending Test Test Name Order Date CMP (COMPLETE METABOLIC PANEL) 3 CMP (COMPLETE METABOLIC PANEL) 4 HEMOGLOBIN A1C (GLYCO) 10/08/2025 HEMOGLOBIN A1C (GLYCO) 09/02/2023 HEMOGLOBIN A1C (GLYCO) 10/05/2024 IRON, TOTAL 10/08/2025 LIPID PANEL (CHOL/TRIG/HDL/LDL) 10/08/20 25 LIPID PANEL (CHOL/TRIG/HDL/LDL) 10/05/20 24 LIPID PANEL (CHOL/TRIG/HDL/LDL) 09/02/20 23 CBC WITH DIFF (EXP 09/2025) 09/02/2023 CBC WITH DIFF (EXP 09/2025) 10/05/2024 VITAMIN B12 09/06/2023 VITAMIN B12 10/08/2025 THYROID PANEL (T4/TSH/FREE T3) 3 THYROID PANEL [...] Insured Coverage Start Date Coverage End Date [employer] [address] [place] [address] [id number] Qian Beckford - patient is the insured Medical (General) History Medical History History ICD Code Colon polyp K63.5 Constipation K59.00 Osteoporosis M81.0 Hypercholesteremia E78.00 Surgical History Surgery Date(Month/Year) Hysterectomy Tonsillectomy
--- OUTSIDE RECORDS SUMMARY | 2025-11-07 07:28 | XMS_ITS | Clinical Summary ---
Author Organization [facility] Healthcare Address [address] [place] [address] Care Team Providers Care Fac Engineer Name Role Phone Unavailable Primary Care Provider Unavailabl e Social History Tobacco UseTypesPacks/DayYears UsedDateSmoking Tobacco: Never Assessed CommentsUnknownSex and Gender InformationValueDate RecordedSex Assigned at Not on fileLegal StpFikqjz02/15/2023 11:47 PM EDTGender IdentityNot on file Sexual OrientationNot on file Plan of Treatment Not on file
--- NOTE | 2025-11-07 07:45 | MM_ITS ---
Patient Name: GIOVANNY HERNANDEZ MR#: [id number] : 1965 Exam Date: 11/07/2025 Ordering Doctor: DR MOISÉS FONTANEZ . RADIOLOGY REPORT PROCEDURE: MM TOMOSYNTHESIS SCREENING BI COMPARISON: MM TOMOSYNTHESIS SCREENING BI, 11/06/2024. MM TOMOSYNTHESIS SCREENING BI, 11/05/2023. MG MAMM SCREEN 3D ALFA CAD, 11/04/2022. MG MAMM ALFA SCRN W CAD DIG, 10/05/2013. INDICATIONS: Screening Calculator Name NCI Breast Cancer Risk Assessment Tool 5 Year Breast Cancer Risk 3.20% Lifetime Breast Cancer Risk 14.00% Personal Breast Cancer No Personal Ovarian Cancer No Treatments None Family Cancers Sister with breast cancer at age 55; Aunt-paternal with breast cancer at age 75; Father with lung cancer at age 80; Grandfather-maternal with colon cancer at age ~70; Grandmother-paternal with breast cancer at age 74; Grandmother-maternal with lung cancer at age 74. LOCATION: [facility] BREAST COMPOSITION: The breasts are heterogeneously dense, which may obscure small masses. FINDINGS: DIAGNOSTIC CATEGORY 1--NEGATIVE. RIGHT BREAST: No significant suspicious finding. LEFT BREAST: No significant suspicious finding. RECOMMENDATIONS: ROUTINE MAMMOGRAM AND CLINICAL EVALUATION IN 12 MONTHS. Dictated by: Uvaldo Parra MD on 11/07/2025 at 10:54 Approved by: Uvaldo Parra MD on 11/07/2025 at 10:56
== END 2025-11-07 07:26 | disposition home or self-care (01) ==
LOC: MAMMO 07:25
PROVIDERS: PCP Family Medicine; Visit Provider Family Medicine
DX: Z12.31 Encounter for screening mammogram for malignant neoplasm of breast (principal); Z80.3 Family history of malignant neoplasm of breast; Z80.1 Family history of malignant neoplasm of trachea, bronchus and lung; Z80.0 Family history of malignant neoplasm of digestive organs
CPT/HCPCS: 77063; 77067